=== PATIENT | female | born 1955 | race Caucasian/White ===

== ENCOUNTER 2017-10-27 13:08 | Emergency (ER) | payer MEDICARE, SELFPAY | END 2017-10-27 16:29 | disposition home or self-care (01) | PROVIDERS: Emergency Provider Emergency Medicine; Family Provider Internal Medicine; Visit Provider Emergency Medicine | DX: J69.0 Pneumonitis due to inhalation of food and vomit (principal); I10 Essential (primary) hypertension; J45.909 Unspecified asthma, uncomplicated; E11.9 Type 2 diabetes mellitus without complications | CPT/HCPCS: 36415; 71010; 80053; 82962; 83605; 83880; 84484; 85025; 87040; 87070; 87205; 94640; 94760; 99284 ==

== ENCOUNTER → 2018-03-14 11:22 | Outpatient (CLI) | payer MEDICARE, SELFPAY ==
[2018-03-14 12:17] LABS: Basophils % 0.4 % (0.1-2.0); Eosinophils # 0.1 K/mm3 (0.0-0.4); Eosinophils % 1.9 % (0.1-12.0); Hematocrit 37.7 % (37.0-47.0); Hemoglobin 11.6 g/dL (12.2-16.2); Lymphocytes # 1.1 K/mm3 (0.7-4.5); Lymphocytes % 15.1 K/mm3 (10-50); Mean Corpuscular HGB Conc 30.9 g/dL (31.8-35.4); Mean Corpuscular Hemoglobin 25.3 pg (27.0-31.2); Mean Corpuscular Volume 81.8 fl (81-99); Mean Platelet Volume 6.9 fl (7.4-10.4); Monocytes # 0.3 K/mm3 (0.1-1.0); Monocytes % 4.1 % (1.7-9.3); Neutrophils # 5.8 K/mm3 (1.8-7.8); Neutrophils % 78.5 % (37.0-80.0); Platelet Count 230 K/mm3 (142-424); Red Blood Count 4.61 M/mm3 (4.20-5.40); Red Cell Distribution Width 15.6 % (11.5-17.5); White Blood Count 7.4 K/mm3 (4.8-10.8)
[2018-03-14 12:56] LABS: Hemoglobin A1C 6.2 % (0.0-7.0)
[2018-03-14 13:13] LABS: Alanine Aminotransferase 16 U/L (12-78); Albumin Level 3.4 gm/dL (3.4-5.0); Albumin/Globulin Ratio 0.8 (1.1-1.8); Alkaline Phosphatase 88 U/L (46-116); Anion Gap 12.4 mEq/L (5-15); Aspartate Amino Transferase 14 U/L (15-37); Bilirubin,Total 0.2 mg/dL (0.2-1.0); Blood Urea Nitrogen 17 mg/dL (7-18); Calcium 8.7 mg/dL (8.5-10.1); Carbon Dioxide 29 mmol/L (21.0-32.0); Chloride 104 mmol/L (98-107); Chol/HDL Ratio 2.8 (1-3.5); Cholesterol 140 mg/dL (140-200); Creatinine,Serum 1.05 mg/dL (0.55-1.02); Estimated Glomerular Filt Rate 53 ml/min (>60); GFR (African American) 65 ML/MIN (>60); Globulin 4.3 gm/dl (1.3-3.2); Glucose 135 mg/dL (74-106); HDL Cholesterol 50 mg/dL (29-89); LDL Cholesterol 67 mg/dL (0-130); Potassium 4.4 mmoL/L (3.5-5.1); Sodium 141 mmol/L (136-145); Total Protein,Serum 7.7 gm/dL (6.4-8.2); Triglycerides 114 mg/dL (30-200); VLDL Cholesterol 23 mg/dL (0-40)
== END ==
PROVIDERS: Visit Provider Internal Medicine
DX: E11.42 Type 2 diabetes mellitus with diabetic polyneuropathy (principal); E78.5 Hyperlipidemia, unspecified; I10 Essential (primary) hypertension; E03.9 Hypothyroidism, unspecified; N18.3 Chronic kidney disease, stage 3 (moderate)
CPT/HCPCS: 36415; 80053; 80061; 83036; 84443; 85025

== ENCOUNTER → 2018-11-16 11:48 | Outpatient (CLI) | payer MEDICARE, SELFPAY ==
[2018-11-16 13:39] LABS: Alanine Aminotransferase 15 U/L (12-78); Albumin Level 3.5 gm/dL (3.4-5.0); Albumin/Globulin Ratio 0.9 (1.1-1.8); Alkaline Phosphatase 91 U/L (46-116); Anion Gap 15.2 mEq/L (5-15); Aspartate Amino Transferase 9 U/L (15-37); Bilirubin,Total 0.3 mg/dL (0.2-1.0); Blood Urea Nitrogen 15 mg/dL (7-18); Calcium 8.3 mg/dL (8.5-10.1); Carbon Dioxide 27 mmol/L (21.0-32.0); Chloride 102 mmol/L (98-107); Chol/HDL Ratio 2.3 (1-3.5); Cholesterol 143 mg/dL (140-200); Creatinine,Serum 1.01 mg/dL (0.55-1.02); Estimated Glomerular Filt Rate 56 ml/min (>60); GFR (African American) 67 ML/MIN (>60); Globulin 4.1 gm/dl (1.3-3.2); Glucose 135 mg/dL (74-106); HDL Cholesterol 61 mg/dL (29-89); LDL Cholesterol 64 mg/dL (0-130); Potassium 4.2 mmoL/L (3.5-5.1); Sodium 140 mmol/L (136-145); Total Protein,Serum 7.6 gm/dL (6.4-8.2); Triglycerides 91 mg/dL (30-200); VLDL Cholesterol 18 mg/dL (0-40)
[2018-11-16 15:24] LABS: Hemoglobin A1C 6.4 % (0.0-7.0)
== END ==
PROVIDERS: Visit Provider Internal Medicine
DX: E11.42 Type 2 diabetes mellitus with diabetic polyneuropathy (principal); E66.01 Morbid (severe) obesity due to excess calories; E78.5 Hyperlipidemia, unspecified; I27.81 Cor pulmonale (chronic); N18.3 Chronic kidney disease, stage 3 (moderate); Z79.4 Long term (current) use of insulin; Z79.84 Long term (current) use of oral hypoglycemic drugs
CPT/HCPCS: 36415; 80053; 80061; 83036

== ENCOUNTER → 2019-12-03 11:40 | Outpatient (CLI) | payer MEDICARE, SELFPAY ==
[2019-12-03 12:12] LABS: Basophils # 0.1 K/mm3 (0-0.2); Basophils % 0.6 % (0.1-2.0); Eosinophils # 0.1 K/mm3 (0.0-0.4); Eosinophils % 1.2 % (0.1-12.0); Hematocrit 29.5 % (37.0-47.0); Lymphocytes % 12.3 % (10-50); Mean Corpuscular HGB Conc 26.1 g/dL (31.8-35.4); Mean Corpuscular Hemoglobin 19.1 pg (27.0-31.2); Mean Corpuscular Volume 73.2 fl (81-99); Mean Platelet Volume 7.1 fl (7.4-10.4); Monocytes # 0.3 K/mm3 (0.1-1.0); Monocytes % 4.3 % (1.7-9.3); Neutrophils # 6.3 K/mm3 (1.8-7.8); Neutrophils % 81.5 % (37.0-80.0); Platelet Count 323 K/mm3 (142-424); Red Blood Count 4.04 M/mm3 (4.20-5.40); Red Cell Distribution Width 17.6 % (11.5-17.5); White Blood Count 7.7 K/mm3 (4.8-10.8)
[2019-12-03 12:14] LABS: Hemoglobin 7.7 g/dL (12.2-16.2)
[2019-12-03 13:02] LABS: Hemoglobin A1C 6.1 % (0.0-7.0)
[2019-12-03 14:19] LABS: Alanine Aminotransferase 6 U/L (12-78); Albumin Level 3.2 gm/dL (3.4-5.0); Albumin/Globulin Ratio 0.8 (1.1-1.8); Alkaline Phosphatase 112 U/L (46-116); Anion Gap 13.6 mEq/L (5-15); Aspartate Amino Transferase 10 U/L (15-37); Bilirubin,Total 0.3 mg/dL (0.2-1.0); Blood Urea Nitrogen 12 mg/dL (7-18); Calcium 8.2 mg/dL (8.5-10.1); Carbon Dioxide 27 mmol/L (21.0-32.0); Chloride 105 mmol/L (98-107); Chol/HDL Ratio 2.5 (1-3.5); Cholesterol 123 mg/dL (140-200); Creatinine,Serum 0.93 mg/dL (0.55-1.02); Estimated Glomerular Filt Rate 61 ml/min (>60); GFR (African American) 74 ML/MIN (>60); Globulin 3.8 gm/dl (1.3-3.2); Glucose 108 mg/dL (74-106); HDL Cholesterol 50 mg/dL (29-89); LDL Cholesterol 54 mg/dL (0-130); Potassium 4.6 mmoL/L (3.5-5.1); Sodium 141 mmol/L (136-145); Thyroid Stimulating Hormone 3.59 uIU/ml (0.358-3.740); Triglycerides 93 mg/dL (30-200); VLDL Cholesterol 19 mg/dL (0-40)
[2019-12-03 15:51] LABS: Reticulocyte % (Auto) 1.9 % (0.9-3.2)
[2019-12-05 05:49] LABS: Iron 13 ug/dL (27-139); UIBC 353 ug/dL (118-369)
[2019-12-05 17:01] LABS: Iron Saturation 4 % (15-55)
== END ==
PROVIDERS: Visit Provider Internal Medicine
DX: E11.42 Type 2 diabetes mellitus with diabetic polyneuropathy (principal); E78.5 Hyperlipidemia, unspecified; E03.9 Hypothyroidism, unspecified; D64.9 Anemia, unspecified; I10 Essential (primary) hypertension; N18.3 Chronic kidney disease, stage 3 (moderate)
CPT/HCPCS: 36415; 80053; 80061; 83036; 83540; 83550; 84443; 85025; 85044

== ENCOUNTER 2020-06-17 09:54 | Emergency (ER) | payer MEDICARE, SELFPAY ==
--- NOTE | 2020-06-17 09:50 | ECG_ITS ---
APPROVED REPORT Exam: Resting ECG HR:100 bpm ECG Measurements Heart Rate 100 AXES AK 200 P 31 QRSd 88 QRS 80 QT 338 T 48 QTc 436 <Conclusion> Normal sinus rhythm Late R-wave progression, no change since 2015 otherwise normal ECG Electronically signed by : Bg Bruno, 06/19/2020 07:55:55
[2020-06-17 09:55] VITALS: BP 173/74; PULSE 105; RESP 16; TEMP 36.6; O2SAT 95; BMI 88.7
[2020-06-17 10:08] VITALS: BP 164/78; PULSE 96; O2SAT 97
--- NOTE | 2020-06-17 10:16 | PC.NURSE ---
Pt up to bedside commode at this time.
--- NOTE | 2020-06-17 10:22 | HMH.EDGENADL ---
ED Disposition Clinical Impression: Palpitations Disposition: Home, Self-Care Condition on Discharge: Fair Instructions: DI for Arrhythmias, DI for Palpitations Additional Instructions: You have been evaluated for palpitations. Please take all medications as prescribed. It is very important to follow-up with your primary care doctor, you may need to wear a cardiac event monitor. Return to the emergency department if you have any new or worsening symptoms, chest pain, shortness of breath, headache. Referrals: Blaze Hebert [Primary Care Provider] - Time of Disposition: 11:53 - Critical Care Critical Care Time: No Attestation: On 06/17/20, the high probability of a clinically significant, sudden or life threatening deterioration of the following system(s) required my full and direct attention, intervention and personal management. The time I documented below is in addition to time spent performing reported procedures but includes the following listed in this critical care notation. Medical Decision Making - Medical Records Medical records reviewed: Yes: I reviewed the patient's medical records. - [place] Inquiry Pt receiving controlled substance: No Vital Signs: 06/17/20 09:55 06/17/20 10:08 06/17/20 11:01 Temperature 98 F Temperature Source Temporal Artery Scan Pulse Rate [Right] 105 H 96 H 88 Respiratory Rate 16 Blood Pressure [Right Arm] 173/74 H 164/78 H 162/46 H Blood Pressure Mean [Right Arm] 107 106 84 Blood Pressure Source [Right Arm] Automatic Cuff Automatic Cuff Automatic Cuff Blood Pressure Position [Right Arm] Sitting Sitting Sitting 02 Sat by Pulse Oximetry 95 97 97 Oxygen Delivery Method Room Air Nasal Cannula Nasal Cannula Oxygen Flow Rate (LPM) 3 3 06/17/20 11:29 Temperature Temperature Source Pulse Rate [Right] 90 Respiratory Rate Blood Pressure [Right Arm] 174/80 H Blood Pressure Mean [Right Arm] 111 Blood Pressure Source [Right Arm] Automatic Cuff Blood Pressure Position [Right Arm] Sitting 02 Sat by Pulse Oximetry 96 Oxygen Delivery Method Nasal Cannula Oxygen Flow Rate (LPM) 3 - Lab Data Lab Results 06/17/20 10:40: WBC 7.0, RBC 4.44, Hgb 12.2, Hct 39.8, MCV 89.8, MCH 27.4, MCHC 30.5 L, RDW 16.0, Plt Count 311, MPV 7.9, Neut % (Auto) 71.6, Lymph % (Auto) 19.3, [place] % (Auto) 5.3, Eos % (Auto) 3.0, Baso % (Auto) 0.8, Neut # (Auto) 5.0, Lymph # (Auto) 1.4, [place] # (Auto) 0.4, Eos # (Auto) 0.2, Baso # (Auto) 0.1 06/17/20 10:40: Sodium 141, Potassium 3.9, Chloride 99, Carbon Dioxide 31 H, Anion Gap 14.9, BUN 15, Creatinine 0.90, Estimated Creat Clear 54, Estimated GFR 63, Est GFR ( Amer) 77, Glucose 141 H, Calcium 8.7, Magnesium 2.1, Troponin I < 0.01, TSH 4.03 06/17/20 10:40: Free T4 1.44 Result diagrams: 06/17/20 10:40 06/17/20 10:40 Orders (Tests/Meds): ED MEDICATIONS Discontinued Medications Generic Name Dose Route Start Last Admin Trade Name Freq PRN Reason Stop Dose Admin Sodium Chloride 1,000 mls @ 999 mls/hr 06/17/20 10:15 06/17/20 10:31 Sod Chlor 0.9% 1000ml Bag IV 06/17/20 11:15 999 mls/hr .Q1H1M CYNTHIA Administration ORDERS Category Date Time Status Troponin I Q3H Lab 06/17/20 13:15 Ordered Troponin I Q3H Lab 06/17/20 16:15 Ordered Medical Decision Narrative: In summary this is a 65-year-old female with history of morbid obesity, paroxysmal SVT, diuretic use presenting to the emergency department with palpitations. She is overall well-appearing. Heart rate is 105 and regular. Differential diagnoses include acute kidney injury, electrolyte derangement, dehydration, hyperthyroidism. Plan to obtain CBC, CMP, thyroid studies, urinalysis, chest x-ray, EKG and reassess. Patient given IV fluid bolus. Initial laboratory results are generally unremarkable. No evidence of renal injury. No electrolyte derangement. Thyroid studies unremarkable. After fluids patient's heart rate had normalized to 80 bpm. She said she was
--- NOTE | 2020-06-17 10:39 | PC.NURSE ---
Lab at bedside, V/S delayed.
[2020-06-17 10:52] LABS: Basophils # 0.1 K/mm3 (0-0.2); Basophils % 0.8 % (0.1-2.0); Eosinophils # 0.2 K/mm3 (0.0-0.4); Hematocrit 39.8 % (37.0-47.0); Hemoglobin 12.2 g/dL (12.2-16.2); Lymphocytes # 1.4 K/mm3 (0.7-4.5); Lymphocytes % 19.3 % (10-50); Mean Corpuscular HGB Conc 30.5 g/dL (31.8-35.4); Mean Corpuscular Hemoglobin 27.4 pg (27.0-31.2); Mean Corpuscular Volume 89.8 fl (81-99); Mean Platelet Volume 7.9 fl (7.4-10.4); Monocytes # 0.4 K/mm3 (0.1-1.0); Monocytes % 5.3 % (1.7-9.3); Neutrophils % 71.6 % (37.0-80.0); Platelet Count 311 K/mm3 (142-424); Red Blood Count 4.44 M/mm3 (4.20-5.40)
[2020-06-17 10:55] LABS: Chloride 99 mmol/L (98-107); Potassium 3.9 mmoL/L (3.5-5.1); Sodium 141 mmol/L (136-145)
[2020-06-17 10:58] LABS: Anion Gap 14.9 mEq/L (5-15); Blood Urea Nitrogen 15 mg/dl (7-17); Carbon Dioxide 31 mmol/L (22.0-30.0); Creatinine Clearance Estimated 54 mL/min (50-200); Estimated Glomerular Filt Rate 63 ml/min (>60); GFR (African American) 77 ML/MIN (>60)
[2020-06-17 10:59] LABS: Calcium 8.7 mg/dl (8.4-10.2); Glucose 141 mg/dl (74-100); Magnesium 2.1 mg/dl (1.6-2.3)
[2020-06-17 11:01] VITALS: BP 162/46; PULSE 88; O2SAT 97
[2020-06-17 11:14] LABS: Troponin I < 0.01 ng/ml (0.00-0.034)
[2020-06-17 11:16] LABS: Free T4 (Free Thyroxine) 1.44 ng/dl (0.78-2.19)
--- NOTE | 2020-06-17 11:20 | PC.NURSE ---
Pt on bedside commode again at this time.
[2020-06-17 11:29] VITALS: BP 174/80; PULSE 90; O2SAT 96
[2020-06-17 11:30] LABS: Thyroid Stimulating Hormone 4.03 uIU/mL (0.465-4.68)
[2020-06-17 12:09] VITALS: BP 176/60; PULSE 70; RESP 16; TEMP 36.9; O2SAT 98
== END 2020-06-17 12:12 | disposition home or self-care (01) ==
PROVIDERS: Emergency Provider Emergency Medicine; PCP Internal Medicine
DX: R00.2 Palpitations (principal); I47.1 Supraventricular tachycardia; E03.9 Hypothyroidism, unspecified; E66.01 Morbid (severe) obesity due to excess calories; Z68.45 Body mass index [BMI] 70 or greater, adult
CPT/HCPCS: 36415; 80048; 83735; 84439; 84443; 84484; 85025; 93005; 93225; 93226; 96365; 99283

== ENCOUNTER → 2020-06-17 15:39 | Outpatient (CLI) | payer MEDICARE, SELFPAY | PROVIDERS: PCP Internal Medicine; Visit Provider Internal Medicine | DX: R00.2 Palpitations (principal) | CPT/HCPCS: 93225; 93226 ==

== ENCOUNTER → 2020-10-20 14:48 | Outpatient (CLI) | payer MEDICARE, SELFPAY ==
[2020-10-20 15:41] LABS: Hemoglobin A1C 5.5 % (4.0-6.0)
[2020-10-20 16:01] LABS: Chloride 103 mmol/L (98-107); Sodium 139 mmol/L (136-145)
[2020-10-20 16:03] LABS: Blood Urea Nitrogen 14 mg/dl (7-17); Estimated Glomerular Filt Rate 72 ml/min (>60); GFR (African American) 88 ML/MIN (>60)
[2020-10-20 16:04] LABS: Alanine Aminotransferase 11 U/L (12-78); Albumin Level 4.3 g/dl (3.5-5.0); Albumin/Globulin Ratio 1.2 (1.1-1.8); Alkaline Phosphatase 107 U/L (38-126); Aspartate Amino Transferase 20 U/L (14-36); Bilirubin,Total 0.3 mg/dl (0.2-1.3); Carbon Dioxide 29 mmol/L (22.0-30.0); Cholesterol 150 mg/dl (140-200); Globulin 3.6 g/dL (1.3-3.2); Total Protein,Serum 7.9 g/dl (6.3-8.2); Triglycerides 109 mg/dl (30-150); VLDL Cholesterol 22 mg/dL (0-40)
[2020-10-20 16:05] LABS: Calcium 8.9 mg/dl (8.4-10.2); Chol/HDL Ratio 2.7 (1-3.5); Glucose 92 mg/dl (74-100); HDL Cholesterol 56 mg/dl (40-60)
[2020-10-20 16:16] LABS: Direct LDL Cholesterol 67.14 mg/dL (100-129)
[2020-10-28 18:52] LABS: Creatinine,Urine Random 170 mg/dL (Not Estab.)
== END ==
PROVIDERS: Visit Provider Internal Medicine
DX: E11.42 Type 2 diabetes mellitus with diabetic polyneuropathy (principal); E66.01 Morbid (severe) obesity due to excess calories; I10 Essential (primary) hypertension; E78.5 Hyperlipidemia, unspecified; E03.9 Hypothyroidism, unspecified; I27.81 Cor pulmonale (chronic); N18.30 Chronic kidney disease, stage 3 unspecified
CPT/HCPCS: 36415; 80053; 80061; 82043; 82570; 83036; 84443

== ENCOUNTER → 2021-05-14 11:48 | Outpatient (CLI) | payer MEDICARE, SELFPAY ==
[2021-05-14 12:43] LABS: Basophils # 0.1 K/mm3 (0-0.2); Basophils % 0.6 % (0.1-2.0); Eosinophils # 0.1 K/mm3 (0.0-0.4); Eosinophils % 1.5 % (0.1-12.0); Hematocrit 36.6 % (37.0-47.0); Hemoglobin 11.9 g/dL (12.2-16.2); Lymphocytes # 0.9 K/mm3 (0.7-4.5); Mean Corpuscular HGB Conc 32.5 g/dL (31.8-35.4); Mean Corpuscular Hemoglobin 28.6 pg (27.0-31.2); Mean Corpuscular Volume 88.1 fl (81-99); Mean Platelet Volume 7.5 fl (7.4-10.4); Monocytes # 0.3 K/mm3 (0.1-1.0); Monocytes % 3.9 % (1.7-9.3); Neutrophils # 6.6 K/mm3 (1.8-7.8); Platelet Count 283 K/mm3 (142-424); Red Blood Count 4.15 M/mm3 (4.20-5.40); Red Cell Distribution Width 14.8 % (11.5-17.5); White Blood Count 7.9 K/mm3 (4.8-10.8)
[2021-05-14 12:55] LABS: Hemoglobin A1C 5.9 % (4.0-6.0)
[2021-05-14 13:22] LABS: Alanine Aminotransferase 9 U/L (12-78); Albumin Level 3.9 g/dl (3.5-5.0); Albumin/Globulin Ratio 1.2 (1.1-1.8); Alkaline Phosphatase 99 U/L (38-126); Anion Gap 12.7 mEq/L (5-15); Aspartate Amino Transferase 15 U/L (14-36); Bilirubin,Total 0.3 mg/dl (0.2-1.3); Blood Urea Nitrogen 16 mg/dl (7-17); Calcium 8.5 mg/dl (8.4-10.2); Carbon Dioxide 28 mmol/L (22.0-30.0); Chloride 105 mmol/L (98-107); Chol/HDL Ratio 2.6 (1-3.5); Cholesterol 148 mg/dl (140-200); Estimated Glomerular Filt Rate 72 ml/min (>60); GFR (African American) 88 ML/MIN (>60); Globulin 3.2 g/dL (1.3-3.2); Glucose 125 mg/dl (74-100); HDL Cholesterol 57 mg/dl (40-60); Potassium 4.7 mmoL/L (3.5-5.1); Sodium 141 mmol/L (136-145); Total Protein,Serum 7.1 g/dl (6.3-8.2); Triglycerides 134 mg/dl (30-150); VLDL Cholesterol 27 mg/dL (0-40)
[2021-05-14 13:33] LABS: Direct LDL Cholesterol 59.94 mg/dL (100-129)
[2021-05-14 13:44] LABS: 25-OH Vitamin D, Total < 12.8 ng/mL (30-100)
== END ==
PROVIDERS: Visit Provider Internal Medicine
DX: E11.42 Type 2 diabetes mellitus with diabetic polyneuropathy (principal); I10 Essential (primary) hypertension; E78.5 Hyperlipidemia, unspecified; E03.9 Hypothyroidism, unspecified; I27.81 Cor pulmonale (chronic); N19 Unspecified kidney failure; E55.9 Vitamin D deficiency, unspecified; G47.33 Obstructive sleep apnea (adult) (pediatric); E66.01 Morbid (severe) obesity due to excess calories
CPT/HCPCS: 36415; 80053; 80061; 82306; 83036; 84443; 85025

== ENCOUNTER 2021-09-16 14:13 | Inpatient (IN) | payer MEDICARE, SELFPAY ==
[2021-09-16] VITALS (8 sets, daily range): BP systolic 134–168; BP diastolic 68–87; PULSE 94–102; RESP 16–21; TEMP 36.7–37.1; O2SAT 84–98; BMI 88.7; BMI 75.7
--- NOTE | 2021-09-16 14:27 | XR_ITS ---
PROCEDURE: XR CHEST PORTABLE CLINICAL HISTORY: SOA COMPARISON: CR CXR1 CHEST-PORTABLE from 01/05/2015 CR CXR1 CHEST-PORTABLE from 10/27/2017 FINDINGS: There is moderate patient rotation. There is mild cardiomegaly. There is asymmetric prominence of the right-sided pulmonary vessels compared to the left which in part could be related to patient's rotation and body habitus. No lobar consolidation or collapse. There are low lung volumes. IMPRESSION: Cardiomegaly with some asymmetric prominence of the right-sided pulmonary vessels. This may be related to the radiographic technique. Asymmetric vascular prominence may be seen with contralateral pulmonary embolus. Please correlate with clinical parameters. Dictated by: Tony Vega MD 09/16/2021 15:43 Tony Vega MD in [place] 09/16/2021 15:43
[2021-09-16 14:46] LABS: Basophils % 0.6 % (0.1-2.0); Eosinophils # 0.2 K/mm3 (0.0-0.4); Eosinophils % 2.2 % (0.1-12.0); Hematocrit 37.2 % (37.0-47.0); Hemoglobin 11.4 g/dL (12.2-16.2); Lymphocytes # 1.1 K/mm3 (0.7-4.5); Lymphocytes % 16.6 % (10-50); Mean Corpuscular HGB Conc 30.5 g/dL (31.8-35.4); Mean Corpuscular Hemoglobin 27.7 pg (27.0-31.2); Mean Corpuscular Volume 90.7 fl (81-99); Mean Platelet Volume 8.8 fl (7.4-10.4); Monocytes # 0.3 K/mm3 (0.1-1.0); Monocytes % 4.8 % (1.7-9.3); Neutrophils % 75.8 % (37.0-80.0); Platelet Count 304 K/mm3 (142-424); Red Cell Distribution Width 14.5 % (11.5-17.5); White Blood Count 6.6 K/mm3 (4.8-10.8)
--- NOTE | 2021-09-16 14:48 | ECG_ITS ---
APPROVED REPORT Exam: Resting ECG HR:85 bpm ECG Measurements Heart Rate 85 AXES QRSd 84 QRS 90 QT 362 T 121 QTc 430 Conclusion Atrial fibrillation Rightward axis Low voltage QRS Septal infarct, age undetermined Abnormal ECG Electronically signed by : Bg Bruno MD 09/17/2021 13:51:48
[2021-09-16 15:18] LABS: Alanine Aminotransferase 7 U/L (12-78); Albumin Level 3.7 g/dl (3.5-5.0); Albumin/Globulin Ratio 1.1 (1.1-1.8); Alkaline Phosphatase 80 U/L (38-126); Anion Gap 11.5 mEq/L (5-15); Aspartate Amino Transferase 13 U/L (14-36); Blood Urea Nitrogen 19 mg/dl (7-17); Calcium 8.8 mg/dl (8.4-10.2); Carbon Dioxide 32 mmol/L (22.0-30.0); Chloride 101 mmol/L (98-107); Creatinine Clearance Estimated 53 mL/min (50-200); Estimated Glomerular Filt Rate 72 ml/min (>60); GFR (African American) 87 ML/MIN (>60); Globulin 3.3 g/dL (1.3-3.2); Glucose 114 mg/dl (74-100); Potassium 4.5 mmoL/L (3.5-5.1); Sodium 140 mmol/L (136-145)
--- NOTE | 2021-09-16 15:18 | HMH.EDGENADL ---
ED Disposition Clinical Impression: New onset atrial fibrillation, Elevated d-dimer Congestive heart failure Qualifiers: Heart failure type: unspecified Heart failure chronicity: acute on chronic Qualified Code(s): I50.9 - Heart failure, unspecified Disposition: Admitted as Observation Condition on Discharge: Fair Referrals: Blaze Hebert [Primary Care Provider] - - Critical Care Critical Care Time: No Attestation: On 09/16/21, the high probability of a clinically significant, sudden or life threatening deterioration of the following system(s) required my full and direct attention, intervention and personal management. The time I documented below is in addition to time spent performing reported procedures but includes the following listed in this critical care notation. Medical Decision Making - Portillo Inquiry Pt receiving controlled substance: No Vital Signs: 09/16/21 14:13 09/16/21 15:31 09/16/21 16:00 Temperature 98.2 F Temperature Source Oral Pulse Rate 95 H 94 H Pulse Rate [Right Radial] 98 H Respiratory Rate 21 16 19 Blood Pressure 160/72 H 162/74 H Blood Pressure [Right Arm] 134/81 Blood Pressure Mean 120 Blood Pressure Mean [Right Arm] 98 Blood Pressure Source [Right Arm] Automatic Cuff Blood Pressure Position [Right Arm] Sitting 02 Sat by Pulse Oximetry 84 L 98 95 Oxygen Delivery Method Room Air 09/16/21 17:00 09/16/21 17:31 Temperature Temperature Source Pulse Rate 96 H 97 H Pulse Rate [Right Radial] Respiratory Rate 16 20 Blood Pressure 160/70 H 148/73 H Blood Pressure [Right Arm] Blood Pressure Mean 100 Blood Pressure Mean [Right Arm] Blood Pressure Source [Right Arm] Blood Pressure Position [Right Arm] 02 Sat by Pulse Oximetry 96 95 Oxygen Delivery Method - Lab Data Lab Results 09/16/21 14:30: WBC 6.6, RBC 4.10 L, Hgb 11.4 L, Hct 37.2, MCV 90.7, MCH 27.7, MCHC 30.5 L, RDW 14.5, Plt Count 304, MPV 8.8, Neut % (Auto) 75.8, Lymph % (Auto) 16.6, [place] % (Auto) 4.8, Eos % (Auto) 2.2, Baso % (Auto) 0.6, Neut # (Auto) 5.0, Lymph # (Auto) 1.1, [place] # (Auto) 0.3, Eos # (Auto) 0.2, Baso # (Auto) 0.0 09/16/21 14:30: TSH 3.88, Free T4 Index 4.2 L, Thyroxine (T4) 11.0, T3 Uptake 39 09/16/21 14:30: D-Dimer 1.12 H 09/16/21 15:00: Sodium 140, Potassium 4.5, Chloride 101, Carbon Dioxide 32 H, Anion Gap 11.5, BUN 19 H, Creatinine 0.80, Estimated Creat Clear 53, Estimated GFR 72, Est GFR ( Amer) 87, Glucose 114 H, Calcium 8.8, Total Bilirubin 0.1 L, AST 13 L, ALT 7 L, Alkaline Phosphatase 80, Troponin I < 0.01, Total Protein 7.0, Albumin 3.7, Globulin 3.3 H, Albumin/Globulin Ratio 1.1 09/16/21 15:00: Magnesium 1.7 09/16/21 15:00: NT-Pro-B Natriuret Pep 1770 H 09/16/21 15:50: SARS-CoV-2 (PCR) Not detected, Influenza A Untype (PCR) Not detected, Influenza Type B (PCR) Not detected 09/16/21 15:51: Urine Color Yellow, Urine Appearance Sl cloudy, Urine pH 6.5, Ur Specific [place] 1.020, Urine Protein Trace, Urine Glucose (UA) Negative, Urine Ketones Trace, Urine Blood Negative, Urine Nitrate Positive, Urine Bilirubin Negative, Urine Urobilinogen 1.0, Ur Leukocyte Esterase 1+ A, Urine RBC None, Urine WBC Occasional, Ur Squamous Epith Cells None, Urine Bacteria 4+ Result diagrams: 09/16/21 14:30 09/16/21 15:00 Orders (Tests/Meds): ED MEDICATIONS Discontinued Medications Generic Name Dose Route Start Last Admin Trade Name Freq PRN Reason Stop Dose Admin Furosemide 80 mg 09/16/21 15:40 09/16/21 15:51 Furosemide 40mg/4ml Vial IV 09/16/21 15:41 80 mg ONCE ONE Administration ORDERS Category Date Time Status Troponin I Q3H Lab 09/16/21 17:23 Received Troponin I Q3H Lab 09/16/21 20:30 Ordered Urine Culture Stat Micro 09/16/21 15:51 Received - Radiology Data #1 Image(s): Chest Image Reviewed: Yes I have reviewed radiologist's interpretation PROCEDURE: XR CHEST PORTABLE CLINICAL HISTORY: SOA COMPARISON: CR CXR1 CH
[2021-09-16 15:19] LABS: Bilirubin,Total 0.1 mg/dl (0.2-1.3)
[2021-09-16 15:32] LABS: Troponin I < 0.01 ng/ml (0.00-0.034)
[2021-09-16 15:51] LABS: Magnesium 1.7 mg/dl (1.6-2.3)
[2021-09-16 15:54] LABS: Microscopic, Urine URINE MICROSCOPIC (MICROSCOPIC)
[2021-09-16 16:00] LABS: NT Pro Brain Natriuretic Pep. 1770 pg/mL (0-125)
[2021-09-16 16:00] LABS: Coronavirus 19, PCR Not Detected (NotDetected); Influenza A, PCR Not Detected (NotDetected); Influenza B, PCR Not Detected (NotDetected)
[2021-09-16 16:00] LABS: Appearance,Urine SL CLOUDY (Clear); Bilirubin,Urine Negative (Negative); Blood, Urine Negative (Negative); Color,Urine YELLOW (Yellow); Glucose,Urine (UA) Negative (Negative); Ketones,Urine TRACE (Negative); Leukocyte Esterase,Urine 1+ (Negative); Nitrate,Urine POSITIVE (Negative); PH,Urine 6.5 (5.0-8.5); Protein,Urine TRACE (Negative)
[2021-09-16 16:24] LABS: Bacteria,Urine 4+ /lpf; WBC,Urine Occasional #/hpf (0-3)
[2021-09-16 16:35] LABS: Thyroid Stimulating Hormone 3.88 uIU/mL (0.465-4.68)
[2021-09-16 16:41] LABS: Free Thyroxine Index 4.2 ug/dL (5.93-13.13); Triiodothryronine (T3) Uptake 39 % (23.5-40.5)
[2021-09-16 17:15] LABS: D-Dimer 1.12 ug/mL (0.0-0.5)
--- NOTE | 2021-09-16 17:46 | PC.NURSE ---
Dr. Eyad alcantara
--- NOTE | 2021-09-16 17:51 | PC.NURSE ---
speaking with Dr. Castano
--- NOTE | 2021-09-16 18:12 | PC.NURSE ---
Emptied pts kil[place]ore of 2900mls.
[2021-09-16 18:14] LABS: Troponin I < 0.01 ng/ml (0.00-0.034)
--- NOTE | 2021-09-16 20:34 | PC.NURSE ---
PT ARRIVED TO FLOOR VIA STRETCHER FROM ED W/STAFF @ 2033
[2021-09-16 20:47] LABS: Troponin I < 0.01 ng/ml (0.00-0.034)
[2021-09-16 21:30] LABS: POC Glucose,Bedside 94 (70-110)
[2021-09-17] VITALS (8 sets, daily range): BP systolic 135–153; BP diastolic 59–93; PULSE 68–106; RESP 19–20; TEMP 36.4–37.6; O2SAT 94–96; BMI 75.7; BMI 75.8
--- NOTE | 2021-09-17 03:18 | PC.NURSE ---
A&OX4. TOLERATING 3.5LNC WELL. F/C PRESENT DRAINING LARGE AMOUNTS OF CLEAR URINE. PT HAS HAD NO C/O THUS FAR. SEEMS TO BE SOA WITH ACTIVITY. ABLE TO MOVE AND TURN HERSELF IN BED. VSS WILL CONTINUE TO MONITOR.
--- NOTE | 2021-09-17 07:00 | CA_ITS ---
APPROVED REPORT EXAM: Comprehensive 2D, Doppler, and color-flow Echocardiogram Hydro Operator: [place] CRT Ht: 5 ft 6 in Wt: 550lbs BSA: 3.07 BP: 148/73 mmHg Indications: Shortness of Breath, Obesity, Peripheral Edema, home O2, MADELINE 2D Dimensions LVOT 1.77 cm (M/F) 1.5-2.5 LA Volume 109.10 mL LA Volume Index 35.50 mL/m2 (M/F) 16-34 M-Mode Dimensions RVDd 4.11 cm (0.9-2.6) LA Diam 5.73 cm (1.9-4.0) LVDd 5.63 cm (3.5-5.7) Ao Diam 3.21 cm (2.0-3.7) LVDs 4.07 cm (3.5-5.7) IVSd 1.61 cm (0.6-1.1) PWd 0.80 cm (0.6-1.1) EF (Teich) 53.10% FS 27.70% EDV (Teich) 155.60 mL ESV (Teich) 72.90 mL LV Diastology E Decel Time 253.00 (160-240 msec) E/A Ratio 1.33 Aortic Valve LVOT Max 161.00 (70-110 cm/s) LVOT VTI 32.42 cm AoV Peak Bryn. 187.00 (50-130 cm/s) AO Peak GR. 14.20 mmHg AO Mean GR. 8.10 (<5 mmHg) AO VTI 34.63 (18-25 cm) TALI (VTI) 2.30 (2.5-4.5 cm2) Mitral Valve MV E Max Bryn. 145.00 (40-130 cm/s) MV A Velocity 109.00 (40-130 cm/s) E/A Ratio 1.33 MV Decel. Time 253.00 (160-240 ms) MV PHT 74.00 ms Pulmonary Valve PV Peak Velocity 107.00 (50-150 cm/s) Tricuspid Valve TR P. Velocity 301.00 cm/s RAP Estimate 10.00 mmHg RVSP 46.10 mmHg Left Ventricle Left atrium is moderately enlarged, left ventricle is normal size, mild concentric left ventricular hypertrophy, visually estimated ejection fraction 50 to 55% with no obvious regional wall motion abnormality, there is abnormal septal motion, diastolic parameters are inconclusive. Right Ventricle Right atrium is moderately enlarged, right ventricle is moderately dilated with mild reduced contractility. Aortic Valve Aortic valve is minimally thickened and fibrosed, there is no aortic stenosis or aortic insufficiency. Mitral Valve Mitral valve grossly normal, there is trace mitral regurgitation. Tricuspid Valve Tricuspid grossly normal, there is mild tricuspid regurgitation, calculated right ventricular systolic pressure is 46mmHg. Pulmonic Valve Pulmonic valve is poorly visualized. Great Vessels Aortic root is normal size. Inferior vena cava is dilated without significant inspiratory collapse. Pericardium No significant pericardial effusion noted. Conclusion 1. Biatrial enlargement, normal left ventricular size, mild concentric left ventricular hypertrophy, visually estimated ejection fraction 50 to 55%, there is abnormal septal motion. Diastolic parameters are inconclusive. 2. Moderately enlarged right ventricle with mild reduced contractility. 3. Trace mitral and mild tricuspid regurgitation, calculated right ventricular systolic pressure is 46 mmHg. 4. No significant pericardial effusion noted. 5. Inferior vena cava is dilated without significant inspiratory collapse. Electronically signed by : Bhavesh Holder MD 09/17/2021 13:14:12
[2021-09-17 07:08] LABS: Anion Gap 9.9 mEq/L (5-15); Blood Urea Nitrogen 16 mg/dl (7-17); Calcium 8.4 mg/dl (8.4-10.2); Carbon Dioxide 35 mmol/L (22.0-30.0); Chloride 98 mmol/L (98-107); Creatinine Clearance Estimated 53 mL/min (50-200); Estimated Glomerular Filt Rate 72 ml/min (>60); GFR (African American) 87 ML/MIN (>60); Glucose 90 mg/dl (74-100); Potassium 3.9 mmoL/L (3.5-5.1); Sodium 139 mmol/L (136-145)
--- NOTE | 2021-09-17 07:26 | HMH.PHAVTE ---
[facility] Pharmacy VTE Monitoring - Patient Demographics Admission date: 09/16/21 Report Date: 09/17/21 Time: 07:26 Allergies/Adverse Reactions: Patient Allergies propofol [From Diprivan] Adverse Reaction (Intermediate, Verified 06/17/20 10:02) HALLUCINATIONS Height: 1.68 m Weight: 213.8 kg Patient Problems: Current Active Problems New onset atrial fibrillation (Acute) Congestive heart failure (Acute) Elevated d-dimer (Acute) - VTE Risk Labs: VTE Related Lab Results Hgb 11.4 g/dL (12.2-16.2) L 09/16/21 14:30 Hct 37.2 % (37.0-47.0) 09/16/21 14:30 Plt Count 304 K/mm3 (142-424) 09/16/21 14:30 BUN 16 mg/dl (7-17) 09/17/21 06:15 Creatinine 0.80 mg/dl (0.52-1.04) 09/17/21 06:15 Estimated Creat Clear 53 mL/min (50-200) 09/17/21 06:15 Clinical Trial Participant: No - Prophylaxis VTE Prophylaxis Ordered?: Yes Types of VTE Prophylaxis: TEDS Knee High, Pharmacological Pharmacologic Type: Enoxaparin
--- NOTE | 2021-09-17 07:29 | HMH.CNCARD ---
History of Present Illness Consult date: 09/17/21 Requesting physician: Joseluis Castano Consult reason: atrial fibrillation, shortness of breath Chief complaint: New onset Atrial fib History of present illness: 66-year-old female admitted to [facility] with worsening shortness of breath and new onset atrial fibrillation. Patient states for the past week she has been having worsening shortness of breath and lower extremity edema. Patient stated that she also had been having fluttery feeling in her chest. Upon arrival to ED, patient was noted to be in new onset atrial fibrillation at a controlled heart rate. Patient states atrial fibrillation is new to her. She states she does have history of PSVT and has been on Cardizem for the past several years to control that. Patient does have history of diastolic congestive heart failure and diastolic dysfunction. Patient states she does have chronic shortness of breath due to worsening asthma. This is managed by PCP. Patient does have history of MADELINE in which she does use CPAP at home. Patient is on supplemental oxygen at home and here at the hospital. Patient denies chest pain, tightness or pressure. Lower extremity edema noted. Patient states she was given Lasix in the ED and had urinated over 2900 mL and her shortness of breath had improved. Hernandez catheter is intact draining dark yellow urine. Patient states she does have history of right heart failure. Denies history of coronary artery disease. Patient states she is never had a heart catheterization. Renal function is stable. Patient does states she has significant family history of coronary artery disease. Patient is morbidly obese. D-dimer was noted as positive at 1.12. Patient is unable to have a chest angiogram due to her weight. Denies cough or fever. Echocardiogram was obtained. Preliminary echocardiogram reveals EF 45 to 50% with mild MV and TR noted. Waiting on official result. Chest x-ray reveals mild cardiomegaly. Cardiomegaly with some prominence of the right-sided pulmonary vessel. Serial troponins were performed which were negative. BNP was 1790. Due to the new onset atrial fibrillation, we will start patient on Xarelto 20 mg p.o. daily for anticoagulant and increased risk for stroke. Will start patient on metoprolol 25 mg twice daily p.o. for better heart rate and BP control. Patient is currently on Cardizem p.o. for heart rate control and blood pressure control. Due to diastolic congestive heart failure, we will start Lasix 40 mg twice daily IV for diuresis. We will continue to monitor patient and her status due to changes in medication. Please notify cardiology of any changes in patient status. CXR: FINDINGS: There is moderate patient rotation. There is mild cardiomegaly. There is asymmetric prominence of the right-sided pulmonary vessels compared to the left which in part could be related to patient's rotation and body habitus. No lobar consolidation or collapse. There are low lung volumes. IMPRESSION: Cardiomegaly with some asymmetric prominence of the right-sided pulmonary vessels. This may be related to the radiographic technique. Asymmetric vascular prominence may be seen with contralateral pulmonary embolus. Please correlate with clinical parameters. [facility] History I have reviewed the patient's past medical history: Yes Medical History: Reports:: Asthma, Atrial Fibrillation, Diabetes Mellitus Type 2, Hyperlipidemia, Hypertension Denies:: Chronic Obstructive Pulmonary Disease (COPD) *Have you ever received a pneumonia vaccine?: No *Have you received a flu vaccine this season?: No Other Medical History: Reports: Hypothyroidism, Thyroid Disease - *Social History Smoking Status: Never smoker Alcohol Intake: never *Occupational Status:: retired *Travel in the last 8 weeks: None Family Hx:: No significant family history Meds Home Medications Medication Instruct
--- NOTE | 2021-09-17 11:11 | HMH.HP ---
*Admission Date: 09/16/21 <Mariela Ragsdale - 09/17/21 11:26> *Chief complaint: SOA <Mariela Ragsdale 09/17/21 11:26> *History of present illness: Ms. Jung is a 66-year-old morbidly obese female patient of Dr. Hebert. She presented to the emergency room with worsening shortness of breath which has been ongoing the past week. She has also had increased lower extremity edema. She has felt a fluttering in her chest, but does have a history of PSVT. She states Dr. Hebert recently increased her Cardizem dose after reviewing a Holter monitor and she had not had any problems until this past week. She was evaluated in the ER and found to have new onset atrial fibrillation at a controlled rate. She states she has never had atrial fibrillation in the past. She does have a history of congestive heart failure and has chronic shortness of breath due to asthma. She is on supplemental oxygen at home. She denies any chest pain, but states it has been increasingly difficult to move around at home due to the shortness of breath. She was given Lasix in the emergency room and has diuresed well. Her shortness of breath has improved. She was admitted and cardiology was consulted. Her troponins have been negative but her BNP was elevated. <Mariela Ragsdale - 09/17/21 11:26> [facility] History I have reviewed the patient's past medical history: Yes <Mariela Ragsdale 09/17/21 11:26> Medical History: Reports:: Asthma, Atrial Fibrillation, Congestive Heart Failure, Diabetes Mellitus Type 2, Hyperlipidemia, Hypertension Denies:: Chronic Obstructive Pulmonary Disease (COPD) <Mariela Ragsdale 09/17/21 11:26> *Have you ever received a pneumonia vaccine?: No <Mariela Ragsdale 09/17/21 11:26> *Have you received a flu vaccine this season?: No <Mariela Ragsdale 09/17/21 11:26> Other Medical History: Reports: Hypothyroidism, Thyroid Disease, Other (Morbid Obesity, History of Lung infection with intubation, PSVT) <Mariela Ragsdale 09/17/21 11:26> Other Surgeries: Yes: , Other (Right lung surgery) <Mariela Ragsdale 09/17/21 11:26> - *Social History Smoking Status: Never smoker <Mariela Ragsdale 09/17/21 11:26> Alcohol Intake: never <Mariela Ragsdale 09/17/21 11:26> *Occupational Status:: retired <Mariela Ragsdale 09/17/21 11:26> *Travel in the last 8 weeks: None <JosefelixMariela 09/17/21 11:26> Family Hx:: No significant family history <JosefelixMariela 09/17/21 11:26> Review of Systems - Constitutional Denies chills, Denies fever(s) <JosefelixMariela 09/17/21 11:26> - Eyes Denies blurry vision, Denies double vision <JosefelixMariela 09/17/21 11:26> - ENT Denies nasal congestion, Denies sore throat <JosefelixMariela 09/17/21 11:26> - *Cardiovascular Reports shortness of breath, Reports rapid, pounding, or irregular heartbeat, Denies chest pain <JnMariela 09/17/21 11:26> - *Respiratory Denies chest congestion, Denies cough <JosefelixMariela 09/17/21 11:26> - *Gastrointestinal Denies loose stools, Denies nausea, Denies vomiting <JosefelixMariela 09/17/21 11:26> - *Genitourinary Denies difficulty urinating, Denies painful urination <JosefelixMariela 09/17/21 11:26> - *Musculoskeletal Reports joint pain (Bilateral knees) <JnMariela 09/17/21 11:26> - *Neurologic Reports abnormal walking, Reports weakness, Denies headache(s), Denies dizziness <JosefelixMariela 09/17/21 11:26> Meds Home Medications Medication Instructions Recorded Confirmed Type ALPRAZolam [Alprazolam 0.25mg 0.25 mg PO TIDP PRN 09/16/21 09/17/21 History Tab] Acetaminophen [Tylenol 325mg 325 mg PO HS 09/16/21 09/16/21 History Tablet] Aspirin [Aspirin 325mg Tab] 325 mg PO HS 09/16/21 09/17/21 History Famotidine [Acid Controller] 20 mg PO DAILY 09/16/21 09/16/21 History Furosemide [Furosemide 80mg Tab] 80 mg PO DAILY 09/16/21 09/16/21 History Gabapentin [Gabapentin 100mg Cap] 100 mg PO HS 09/16/21 09/16/21 History Glimepiride 2 mg PO BIDW
--- NOTE | 2021-09-17 16:57 | PC.NURSE ---
PT IS RESTING IN BED. MEDICATED PER MAR FOR DISCOMFORT. ALERT AND ORIENTED X3. PT WAS ABLE TO TOLERATE GETTING OOB TO THE BSC WITH 3 ASSIST. PT WAS ABLE TO STAND AND PIVOT BUT UNABLE TO AMBULATE. PT STATES SHE DOES NOT WALK WELL AT HOME. DRYNESS NOTED TO BLE. LUNG SOUNDS DIMINISHED. ABDOMEN OBESE/SOFT WITH HYPOACTIVE BOWEL SOUNDS. UMBILICAL HERNIA NOTED. VSS. PT HAS DIURESED WELL. REFUSED BATH THIS SHIFT. WILL CONTINUE TO MONITOR.
[2021-09-17 20:19] LABS: POC Glucose,Bedside 152 (70-110)
[2021-09-17 20:19] LABS: POC Glucose,Bedside 87 (70-110)
[2021-09-18] VITALS (8 sets, daily range): BP systolic 139–148; BP diastolic 68–74; PULSE 70–108; RESP 20–24; TEMP 36.6–37.2; O2SAT 92–98; BMI 75.6
--- NOTE | 2021-09-18 05:25 | PC.NURSE ---
pt has rested well throughout the shift. remains on 3.5L NC, tolerating well. Hernandez cath in place draining clear urine. pt used the BSC earlier in the shift but no BM. transferred to the BSC w/ 2+ staff member assist and walker. resting in bed at this time. call light within reach.
[2021-09-18 05:29] LABS: POC Glucose,Bedside 90 (70-110)
[2021-09-18 07:39] LABS: Anion Gap 6.8 mEq/L (5-15); Blood Urea Nitrogen 17 mg/dl (7-17); Calcium 8.2 mg/dl (8.4-10.2); Carbon Dioxide 38 mmol/L (22.0-30.0); Chloride 97 mmol/L (98-107); Creatinine Clearance Estimated 53 mL/min (50-200); Estimated Glomerular Filt Rate 72 ml/min (>60); GFR (African American) 87 ML/MIN (>60); Glucose 119 mg/dl (74-100); Potassium 3.8 mmoL/L (3.5-5.1); Sodium 138 mmol/L (136-145)
--- NOTE | 2021-09-18 08:48 | HMH.ACPN2 ---
<Mariela Ragsdale - Last Filed: 09/18/21 08:48> Internal Medicine - PN: Subj *Date: 09/18/21 *Time: 08:48 Interval history: Patient states her shortness of breath has improved but now she has developed diarrhea. She states she has had numerous episodes yesterday and today. She states is very difficult to get up to the bedside commode. She has not noticed any blood in the stool. Exam Vital signs and Labs for Last 24 Hours: Temp Pulse Resp BP Pulse Ox 98.2 F 92 H 24 139/68 93 L 09/18/21 07:23 09/18/21 07:23 09/18/21 07:23 09/18/21 07:23 09/18/21 07:23 Laboratory Results - last 24 hr 09/17/21 05:23: POC Glucose 87 09/17/21 20:07: POC Glucose 152 H 09/18/21 05:17: POC Glucose 90 09/18/21 06:51: Sodium 138, Potassium 3.8, Chloride 97 L, Carbon Dioxide 38 H, Anion Gap 6.8, BUN 17, Creatinine 0.80, Estimated Creat Clear 53, Estimated GFR 72, Est GFR ( Amer) 87, Glucose 119 H, Calcium 8.2 L I & O for Last 24 hours: Intake & Output 09/15/21 09/16/21 09/17/21 09/18/21 11:59 11:59 11:59 11:59 Intake Total 480 / 480 840 / 840 Output Total 3000 / 3000 2800 / 2800 Balance -2520 / -2520 -1960 / -1960 Weight 471 lb 12.627 oz 470 lb 7.463 oz Microbiology Reports for the Last 24 Hours: Microbiology 09/16/21 15:51 Urine,Catheterized Urine Culture - Final Klebsiella pneumoniae - Constitutional no acute distress - *Routine Respiratory Exam Present: CTA bilaterally - *Routine Cardiovascular Exam Present: irregularly irregular - *Routine Abdominal Exam Present: soft, normoactive bowel sounds. Absent: tenderness - *Routine Extremities Exam Present: edema (Bilateral lower extremity edema). Absent: cyanosis, clubbing - *Routine Skin Exam Present: warm. Absent: rash - *Routine Neurological Exam Present: alert, oriented X3 Assessment and Plan (1) New onset atrial fibrillation Status: Acute Category: Medical Code(s): I48.91 - Unspecified atrial fibrillation (2) Congestive heart failure Status: Acute Qualifiers: Heart failure type: unspecified Heart failure chronicity: acute on chronic Qualified Code(s): I50.9 - Heart failure, unspecified Category: Medical Code(s): I50.9 - Heart failure, unspecified (3) Elevated d-dimer Status: Acute Category: Medical Code(s): R79.89 - Other specified abnormal findings of blood chemistry (4) Asthma Status: Chronic Category: Medical Code(s): J45.909 - Unspecified asthma, uncomplicated (5) Morbid obesity Status: Chronic Category: Medical Code(s): E66.01 - Morbid (severe) obesity due to excess calories (6) Hypertension Status: Chronic Category: Medical Code(s): I10 - Essential (primary) hypertension (7) Hyperlipemia Status: Chronic Category: Medical Code(s): E78.5 - Hyperlipidemia, unspecified (8) Type 2 diabetes mellitus Status: Chronic Category: Medical Code(s): E11.9 - Type 2 diabetes mellitus without complications (9) Palpitations Status: Chronic Category: Medical Code(s): R00.2 - Palpitations - Assessment and plan all Dx Assessment and Plan for all problems:: Cardiology did see the patient and started her on Xarelto due to new onset atrial fibrillation. They also started on metoprolol 25 mg twice daily for heart rate and blood pressure control. They started her on Lasix 40 mg IV twice daily. She has diuresed well. We will get a diarrhea panel to evaluate the etiology of her diarrhea. Possibly home later today. <Joseluis Castano - Last Filed: 09/18/21 10:07> Internal Medicine - PN: Subj *Date: 09/18/21 *Time: 10:03 Exam Vital signs and Labs for Last 24 Hours: Temp Pulse Resp BP Pulse Ox 98.2 F 92 H 24 139/68 93 L 09/18/21 07:23 09/18/21 07:23 09/18/21 07:23 09/18/21 07:23 09/18/21 07:23 Laboratory Results - last 24 hr 09/17/21 05:23: POC Glucose 87 09/17/21 20:07: POC Glucose 152 H
--- NOTE | 2021-09-18 13:55 | HMH.PHAINT ---
DISCHARGE MEDICATION COUNSELING PROVIDED. DISCUSSED ADDITION OF XARELTO AND METOPROLOL TO REGIMEN. DISCUSSED HOW TO TAKE AND POSSIBLE ADES. WATCH FOR BLOOD WHERE IT SHOULDNT BE (URINE, STOOL, VOMITING) AND IF YOU BUMP HEAD TO BE SEEN TO R/O HEAD BLEED. PT ASKED IF THEY WERE CONTINUING LISINOPRIL AND DILITAZEM SINCE THE ADDITION OF METOPROLOL. SHE WAS ADVISED THEY WERE AND TO WATCH FOR SIGNS OF DIZZINESS OR LIGHTHEADEDNESS EARLY ON AND TO DISCUSS WITH MD IF THAT OCCURS. PT ENDORSED NO FURTHER QUESTIONS AT THIS TIME.
[2021-09-18 17:14] LABS: POC Glucose,Bedside 169 (70-110)
--- NOTE | 2021-09-21 09:13 | HMH.DCSUM ---
General - General Admission date:: 09/16/21 <Joseluis Castano - 11/25/21 17:25> 09/16/21 <Bia Stuart - 09/21/21 09:19> Discharge date: 09/18/21 <NarcisoBia - 09/21/21 09:19> HPI HPI: Ms. Jung was a 66-year-old morbidly obese female patient of Dr. Hebert. She presented to the emergency room with worsening shortness of breath which had been ongoing the week prior to admission. She had also had increased lower extremity edema. She had felt a fluttering in her chest, but did have a history of PSVT. She stated Dr. Hebert recently increased her Cardizem dose after reviewing a Holter monitor and she had not had any problems until the past week. She was evaluated in the ER and found to have new onset atrial fibrillation at a controlled rate. She stated she had never had atrial fibrillation in the past. She did have a history of congestive heart failure and had chronic shortness of breath due to asthma. She was on supplemental oxygen at home. She denied any chest pain, but stated it had been increasingly difficult to move around at home due to the shortness of breath. She was given Lasix in the emergency room and had diuresed well. Her shortness of breath had improved. She was admitted and cardiology was consulted. Her troponins had been negative but her BNP was elevated. <Narciso,Bia - 09/21/21 09:19> Hospital Course Hospital Course: She was seen by cardiology and Echo was ordered. She was started on Xarelto as well as metoprolol and Lasix. She did develop some diarrhea overnight which resolved and by the afternoon of 09/18/21 she was felt stable for discharge with follow up with PCP Dr. Hebert in 1 week. <Bia Stuart - 09/21/21 09:22> Objective Vital signs: Temp Pulse Resp BP Pulse Ox 98.9 F 85 22 139/73 98 09/18/21 12:17 09/18/21 16:00 09/18/21 12:17 09/18/21 12:17 09/18/21 12:17 <Joseluis Castano - 11/25/21 17:25> Temp Pulse Resp BP Pulse Ox 98.9 F 85 22 139/73 98 09/18/21 12:17 09/18/21 16:00 09/18/21 12:17 09/18/21 12:17 09/18/21 12:17 <Bia Stuart - 09/21/21 09:19> DS: Diagnosis - Discharge Diagnosis (1) New onset atrial fibrillation Status: Acute (2) Congestive heart failure Status: Acute (3) Elevated d-dimer Status: Acute (4) Asthma Status: Chronic (5) Morbid obesity Status: Chronic (6) Hypertension Status: Chronic (7) Hyperlipemia Status: Chronic (8) Type 2 diabetes mellitus Status: Chronic (9) Palpitations Status: Chronic <Bia Stuart - 09/21/21 09:23> (1) New onset atrial fibrillation Status: Acute (2) Congestive heart failure Status: Acute (3) Elevated d-dimer Status: Acute (4) Asthma Status: Chronic (5) Morbid obesity Status: Chronic (6) Hypertension Status: Chronic (7) Hyperlipemia Status: Chronic (8) Type 2 diabetes mellitus Status: Chronic (9) Palpitations Status: Chronic <Joseluis Castano - 11/25/21 17:25> Discharge Plan - Patient Discharge Instructions ACTIVITY: Continue current activity <Bia Stuart - 09/21/21 09:19> DIET: continue same diet <Bia Stuart - 09/21/21 09:19> Patient Instructions: Congestive Heart Failure (Alternative Therapy), Heart Failure, Atrial Fibrillation, DI for Heart Failure, DI for Atrial Fibrillation <Joseluis Castano - 11/25/21 17:25> Forms: <Joseluis Castano - 11/25/21 17:25> - Follow up Plan Follow up with: Blaze Hebert [Primary Care Provider] - 09/27/21 <Joseluis Castano - 11/25/21 17:25> Disposition: Home, Self-Care <Joseluis Castano - 11/25/21 17:25> Condition at discharge:: Stable <Bia Stuart - 09/21/21 09:24> Home Medications: Home Medications Medication Instructions Recorded Confirmed Type ALPRAZolam [Alprazolam 0.25mg 0.25 mg PO TIDP PRN 09/16/21 11/22/21 History Tab] Acetaminophen [Tylenol 325mg 325 mg PO HS 09/16/21
== END 2021-09-18 16:43 | disposition home or self-care (01) | DRG 291 ==
LOC: ER 18:10 → 2ND 19:11
PROVIDERS: Admitting Provider Family Medicine; Emergency Provider Emergency Medicine; PCP Internal Medicine; Visit Provider Family Medicine
DX: I11.0 Hypertensive heart disease with heart failure (principal); I50.33 Acute on chronic diastolic (congestive) heart failure; I47.1 Supraventricular tachycardia; Z68.45 Body mass index [BMI] 70 or greater, adult; I48.91 Unspecified atrial fibrillation; Z79.4 Long term (current) use of insulin; E11.9 Type 2 diabetes mellitus without complications; E03.9 Hypothyroidism, unspecified; Z20.822 Contact with and (suspected) exposure to COVID-19; Z99.81 Dependence on supplemental oxygen; G47.33 Obstructive sleep apnea (adult) (pediatric); J45.909 Unspecified asthma, uncomplicated; E66.01 Morbid (severe) obesity due to excess calories
CPT/HCPCS: 36415; 71045; 80048; 80053; 81001; 82962; 83735; 83880; 84436; 84443; 84479; 84484; 85025; 85378; 87086; 87088; 87186; 93005; 93306; 96374; 99284; C9803; U0003; U0005

== ENCOUNTER 2021-11-16 03:20 | Observation (INO) | payer MEDICARE, SELFPAY ==
[2021-11-16] VITALS (15 sets, daily range): BP systolic 102–148; BP diastolic 48–84; PULSE 62–95; RESP 16–28; TEMP 36.6–36.9; O2SAT 90–95; BMI 88.7; BMI 83.9; BMI 83.6
[2021-11-16 03:40] LABS: Basophils # 0.1 K/mm3 (0-0.2); Basophils % 0.7 % (0.1-2.0); Eosinophils # 0.1 K/mm3 (0.0-0.4); Eosinophils % 1.4 % (0.1-12.0); Hematocrit 33.6 % (37.0-47.0); Hemoglobin 9.6 g/dL (12.2-16.2); Lymphocytes # 0.7 K/mm3 (0.7-4.5); Lymphocytes % 7.6 % (10-50); Mean Corpuscular HGB Conc 28.6 g/dL (31.8-35.4); Mean Corpuscular Hemoglobin 27.3 pg (27.0-31.2); Mean Corpuscular Volume 95.4 fl (81-99); Mean Platelet Volume 7.9 fl (7.4-10.4); Monocytes # 0.5 K/mm3 (0.1-1.0); Monocytes % 5.1 % (1.7-9.3); Neutrophils # 7.8 K/mm3 (1.8-7.8); Neutrophils % 85.1 % (37.0-80.0); Platelet Count 365 K/mm3 (142-424); Red Blood Count 3.52 M/mm3 (4.20-5.40); Red Cell Distribution Width 17.2 % (11.5-17.5); White Blood Count 9.2 K/mm3 (4.8-10.8)
[2021-11-16 03:41] LABS: MANUAL DIFFERENTIAL MANUAL DIFFERENTIAL (MANUAL DIFF)
[2021-11-16 03:43] LABS: Alanine Aminotransferase 9 U/L (12-78); Albumin Level 3.8 g/dl (3.5-5.0); Albumin/Globulin Ratio 1.1 (1.1-1.8); Alkaline Phosphatase 74 U/L (38-126); Anion Gap 14.9 mEq/L (5-15); Aspartate Amino Transferase 14 U/L (14-36); Bilirubin,Total 0.2 mg/dl (0.2-1.3); Blood Urea Nitrogen 52 mg/dl (7-17); Calcium 8.8 mg/dl (8.4-10.2); Carbon Dioxide 22 mmol/L (22.0-30.0); Chloride 108 mmol/L (98-107); Creatinine Clearance Estimated 28 mL/min (50-200); Estimated Glomerular Filt Rate 27 ml/min (>60); GFR (African American) 32 ML/MIN (>60); Globulin 3.5 g/dL (1.3-3.2); Glucose 70 mg/dl (74-100); Potassium 5.9 mmoL/L (3.5-5.1); Sodium 139 mmol/L (136-145); Total Protein,Serum 7.3 g/dl (6.3-8.2)
[2021-11-16 03:48] LABS: C-Reactive Protein 19.1 mg/L (0-4)
[2021-11-16 03:54] LABS: POC Glucose,Bedside 67 (70-110)
[2021-11-16 04:02] LABS: Procalcitonin 0.078 ng/mL (0.0-2.0)
[2021-11-16 04:15] LABS: Erythrocyte Sedimentation Rate 122 mm/hr (0-30)
[2021-11-16 04:21] LABS: POC Glucose,Bedside 99 (70-110)
[2021-11-16 04:21] LABS: Eosinophils % 1 % (0-3); Lymphocytes % 10 % (10-50); Neutrophils % 88 % (42-76); Total Cells Counted 100
[2021-11-16 04:22] LABS: Acanthocytes 1+; Hypochromasia 1+; Platelet Estimate Normal; Tear Drop Cells 1+
[2021-11-16 04:59] LABS: POC Glucose,Bedside 69 (70-110)
--- NOTE | 2021-11-16 04:59 | XR_ITS ---
PROCEDURE INFORMATION: Exam: XR Chest Exam date and time: 11/16/2021 4:59 AM Age: 66 years old Clinical indication: Shortness of breath; Additional info: Low fsbs TECHNIQUE: Imaging protocol: XR of the chest. Views: 1 view. COMPARISON: CR XR CHEST PORTABLE 09/16/2021 3:31 PM FINDINGS: Lungs: Limited depth of inspiration. Pulmonary vascular prominence with diffuse interstitial prominence suggestive of pulmonary vascular congestion and pulmonary edema. No focal consolidation. Left suprahilar soft tissue prominence may reflect adenopathy. Pleural spaces: No pleural effusion. No pneumothorax. Heart/Mediastinum: Cardiomegaly. Bones/joints: No acute findings. IMPRESSION: 1. Cardiomegaly with pulmonary vascular prominence and diffuse interstitial prominence. Consider CHF. 2. Left suprahilar soft tissue prominence may reflect adenopathy. Follow-up CT is suggested.
[2021-11-16 05:21] LABS: NT Pro Brain Natriuretic Pep. 3640 pg/mL (0-125)
[2021-11-16 06:06] LABS: POC Glucose,Bedside 145 (70-110)
--- NOTE | 2021-11-16 06:20 | HMH.EDGENADL ---
ED Disposition Clinical Impression: GEOVANNY (acute kidney injury), Hypoglycemia, Morbid obesity, Abscess or cellulitis of knee, Hyperkalemia, Elevated erythrocyte sedimentation rate, Immobility Diabetes mellitus Qualifiers: Diabetes mellitus type: type 2 Diabetes mellitus custodial insulin use: unspecified parts counterman insulin use status Diabetes mellitus complication status: with other specified complication Qualified Code(s): E11.69 - Type 2 diabetes mellitus with other specified complication UTI (urinary tract infection) Qualifiers: Urinary tract infection type: site unspecified Hematuria presence: without hematuria Qualified Code(s): N39.0 - Urinary tract infection, site not specified Anemia Qualifiers: Anemia type: unspecified type Qualified Code(s): D64.9 - Anemia, unspecified Congestive heart failure Qualifiers: Heart failure type: unspecified Heart failure chronicity: chronic Qualified Code(s): I50.9 - Heart failure, unspecified A-fib Qualifiers: Atrial fibrillation type: unspecified Qualified Code(s): I48.91 - Unspecified atrial fibrillation Disposition: Admitted As Inpatient Condition on Discharge: Fair Instructions: DI for Hyperglycemia -- Adult Referrals: Blaze Hebert [Primary Care Provider] - - Critical Care Critical Care Time: No Attestation: On 11/16/21, the high probability of a clinically significant, sudden or life threatening deterioration of the following system(s) required my full and direct attention, intervention and personal management. The time I documented below is in addition to time spent performing reported procedures but includes the following listed in this critical care notation. Medical Decision Making - Medical Records Medical records reviewed: Yes: I reviewed the patient's medical records. - [place] Inquiry Pt receiving controlled substance: No Vital Signs: 11/16/21 03:08 Temperature 98.0 F Temperature Source Oral Pulse Rate [Right] 62 Respiratory Rate 20 Blood Pressure [Right Arm] 113/75 Blood Pressure Mean [Right Arm] 87 02 Sat by Pulse Oximetry 94 L Oxygen Delivery Method Room Air - Lab Data Lab results reviewed: Yes: I reviewed the patient's lab results. Lab Results 11/16/21 03:21: POC Glucose 67 L 11/16/21 03:25: WBC 9.2, RBC 3.52 L, Hgb 9.6 L, Hct 33.6 L, MCV 95.4, MCH 27.3, MCHC 28.6 L, RDW 17.2, Plt Count 365, MPV 7.9, Neut % (Auto) 85.1 H, Lymph % (Auto) 7.6 L, [place] % (Auto) 5.1, Eos % (Auto) 1.4, Baso % (Auto) 0.7, Neut # (Auto) 7.8, Lymph # (Auto) 0.7, [place] # (Auto) 0.5, Eos # (Auto) 0.1, Baso # (Auto) 0.1, Total Counted 100, Neutrophils % (Manual) 88 H, Lymphocytes % (Manual) 10, Eosinophils % (Manual) 1, Basophils % (Manual) 1.0, Platelet Estimate Normal, RBC Morphology Not Reportable, Hypochromasia 1+, Tear Drop Cells 1+, Acanthocytes (Spur) 1+, ESR 122 H 11/16/21 03:25: Sodium 139, Potassium 5.9 H, Chloride 108 H, Carbon Dioxide 22, Anion Gap 14.9, BUN 52 H, Creatinine 1.90 H, Estimated Creat Clear 28, Estimated GFR 27 L, Est GFR ( Amer) 32 L, Glucose 70 L, Calcium 8.8, Total Bilirubin 0.2, AST 14, ALT 9 L, Alkaline Phosphatase 74, C-Reactive Protein 19.1 H, Total Protein 7.3, Albumin 3.8, Globulin 3.5 H, Albumin/Globulin Ratio 1.1, Procalcitonin 0.078 11/16/21 03:25: Hemoglobin A1c 5.0 11/16/21 03:25: NT-Pro-B Natriuret Pep 3640 H 11/16/21 04:14: POC Glucose 99 11/16/21 04:52: POC Glucose 69 L 11/16/21 05:59: POC Glucose 145 H 11/16/21 06:45: Urine Color Yellow, Urine Appearance Clear, Urine pH 5.5, Ur Specific [place] 1.025, Urine Protein 1+, Urine Glucose (UA) Negative, Urine Ketones Negative, Urine Blood 1+, Urine Nitrate Negative, Urine Bilirubin Negative, Urine Urobilinogen 0.2, Ur Leukocyte Esterase 1+ A, Urine RBC 5-10, Urine WBC 5-10, Ur Squamous Epith Cells Occasional, Urine Bacteria 1+ 11/16/21 07:02: POC Glucose 149 H Result diagrams: 11/16/21 03:25 11/16/21 03:25 Orders (Tests/Meds): ED MEDICATIONS Generic Name Dose Route Start L
[2021-11-16 06:48] LABS: Microscopic, Urine URINE MICROSCOPIC (MICROSCOPIC)
[2021-11-16 06:52] LABS: Coronavirus 19, PCR Not Detected (NotDetected); Influenza A, PCR Not Detected (NotDetected); Influenza B, PCR Not Detected (NotDetected)
[2021-11-16 07:02] LABS: Appearance,Urine CLEAR (Clear); Bilirubin,Urine Negative (Negative); Blood, Urine 1+ (Negative); Color,Urine YELLOW (Yellow); Glucose,Urine (UA) Negative (Negative); Ketones,Urine Negative (Negative); Leukocyte Esterase,Urine 1+ (Negative); Nitrate,Urine Negative (Negative); PH,Urine 5.5 (5.0-8.5); Protein,Urine 1+ (Negative); Specific Gravity, Urine 1.025 (1.005-1.030); Urobilinogen,Urine 0.2 EU/dl (0.2)
[2021-11-16 07:10] LABS: POC Glucose,Bedside 149 (70-110)
[2021-11-16 07:22] LABS: Bacteria,Urine 1+ /lpf; Squamous Epithelial Cell,Urine Occasional #/hpf (0-5)
--- NOTE | 2021-11-16 07:49 | ECG_ITS ---
APPROVED REPORT Exam: Resting ECG HR:84 bpm ECG Measurements Heart Rate 84 AXES QRSd 86 QRS 85 QT 406 T 94 QTc 479 Conclusion Accelerated Junctional rhythm with fusion complexes Low voltage QRS Septal infarct, age undetermined Abnormal ECG Electronically signed by : Bg Bruno MD 11/18/2021 13:47:24
--- NOTE | 2021-11-16 07:54 | P.CONPHA_ITS ---
[facility] VTE Monitoring - Patient Demographics Admission date: 11/16/21 Report Date: 11/16/21 Time: 07:54 Allergies/Adverse Reactions: Patient Allergies propofol [From Diprivan] Adverse Reaction (Intermediate, Verified 06/17/20 10:02) HALLUCINATIONS Height: 1.68 m Weight: 249.476 kg - VTE Risk Labs: VTE Related Lab Results Hgb 9.6 g/dL (12.2-16.2) L 11/16/21 03:25 Hct 33.6 % (37.0-47.0) L 11/16/21 03:25 Plt Count 365 K/mm3 (142-424) 11/16/21 03:25 BUN 52 mg/dl (7-17) H 11/16/21 03:25 Creatinine 1.90 mg/dl (0.52-1.04) H 11/16/21 03:25 Estimated Creat Clear 28 mL/min (50-200) 11/16/21 03:25 Clinical Trial Participant: No - Prophylaxis VTE Prophylaxis Ordered?: Yes Types of VTE Prophylaxis: TEDS Knee High
--- NOTE | 2021-11-16 08:05 | PC.NURSE ---
WOUND NOTED TO POSTERIOR RT KNEE. REDNESS AND FOUL DRAINAGE NOTED
[2021-11-16 08:32] LABS: Chol/HDL Ratio 2.3 (1-3.5); Cholesterol 94 mg/dl (140-200); HDL Cholesterol 41 mg/dl (40-60); Magnesium 2.4 mg/dl (1.6-2.3); Triglycerides 99 mg/dl (30-150); VLDL Cholesterol 20 mg/dL (0-40)
[2021-11-16 08:33] LABS: POC Glucose,Bedside 158 (70-110)
[2021-11-16 08:43] LABS: Direct LDL Cholesterol 31.74 mg/dL (100-129)
[2021-11-16 08:50] LABS: T4 (Thyroxine) 7.7 ug/dl (5.53-11.0)
[2021-11-16 09:04] LABS: Thyroid Stimulating Hormone 8.02 uIU/mL (0.465-4.68)
--- NOTE | 2021-11-16 10:06 | HMH.PHAINT ---
clarified home medication list using list from patient, list from Clinic pharmacy
--- NOTE | 2021-11-16 13:45 | DIET.NUTRFU ---
RD reviewed patients chart and interviewed her about her weights. She was her 09/18 with weight of 214kg and current wt is 236kg, she has gained 50# of 10% in ~60 days. She takes diuretic tx at home, not continued at this time. Reviewed diet with patient, changed to diabetic, 2gmNa secondary to PMH. Labs on 11/16: Na 139, K 5.9H, BUN 52H, Cr 1.9H, Glucose 70L. Diuretic tx maybe on hold d/t kidney fxn. NS in place. Will review weight changes with provider.
--- NOTE | 2021-11-16 13:51 | HMH.HP ---
*Admission Date: 11/16/21 *Chief complaint: low glu *History of present illness: this patient presented to the [facility] ed via [facility]-pt was confused this am and found by ems to have dec glu - pt is diabetic and last took metformin last pm - no vomiting and no diarrhea - no cough - pt with reddness tender rt post knee - pt with no fever - pt admitted with acute eryn and persistent hypoglycemia [facility] History I have reviewed the patient's past medical history: Yes Medical History: Reports:: Asthma, Atrial Fibrillation, Congestive Heart Failure, Diabetes Mellitus Type 2, Hyperlipidemia, Hypertension Denies:: Chronic Obstructive Pulmonary Disease (COPD) *Have you ever received a pneumonia vaccine?: No *Have you received a flu vaccine this season?: No Other Medical History: Reports: Anemia, Arthritis, Hypothyroidism, Sinus Problems, Thyroid Disease, Other (Morbid Obesity, History of Lung infection with intubation, PSVT) Other Surgeries: Yes: , Dilation and Curettage, Thyroidectomy, Other (Right lung surgery) - *Social History Smoking Status: Never smoker Alcohol Intake: never *Occupational Status:: disabled Household Members: children *Travel in the last 8 weeks: None Family Hx:: Cancer, Diabetes, Heart Attack, Kidney Disease, Thyroid Disorder Review of Systems - Review of Systems Review of systems:: pertinent systems reviewed and negative unless documented below - Constitutional Denies fever(s) - Eyes Denies change in vision - ENT Denies sore throat - *Cardiovascular Denies chest pain at rest - *Respiratory Denies cough - *Gastrointestinal Denies abdominal pain - *Genitourinary Denies blood in urine - *Musculoskeletal Denies joint swelling - Integumentary/Breasts Denies rash - *Neurologic Reports weakness, Denies localized weakness, Denies headache(s), Denies seizure-like activity - Psychiatric Denies paranoia Meds Home Medications Medication Instructions Recorded Confirmed Type ALPRAZolam [Alprazolam 0.25mg 0.25 mg PO TIDP PRN 09/16/21 11/16/21 History Tab] Acetaminophen [Tylenol 325mg 325 mg PO HS 09/16/21 11/16/21 History Tablet] Aspirin [Aspirin 325mg Tab] 325 mg PO HS 09/16/21 11/16/21 History Famotidine [Acid Controller] 20 mg PO DAILY 09/16/21 11/16/21 History Gabapentin [Gabapentin 100mg Cap] 100 mg PO HS 09/16/21 11/16/21 History Glimepiride 2 mg PO BIDWMEAL 09/16/21 11/16/21 History Hydrocodone/Acetaminophen 1 each PO Q6HP PRN 09/16/21 11/16/21 History [Hydrocodone-Acetamin 7.5-325] Ibuprofen [Ibuprofen 400mg 400 mg PO Q4HP PRN 09/16/21 11/16/21 History Tablet] Ipratropium/Albuterol Sulfate 3 ml IH Q6 PRN 09/16/21 11/16/21 History [Duoneb 3mL neb] Levothyroxine Sodium 125 mcg PO DAILY 09/16/21 11/16/21 History [Levothyroxine 125mcg (0.125mg) Tab] Linagliptin [Tradjenta 5mg tablet] 5 mg PO DAILY 09/16/21 11/16/21 History Metformin HCl [Metformin 1000mg 1,000 mg PO BID 09/16/21 11/16/21 History Tablets] Omeprazole [Omeprazole 20mg Tab] 20 mg PO DAILY 09/16/21 11/16/21 History Potassium Chloride [Klor-Con M20] 20 meq PO DAILY 09/16/21 11/16/21 History Pravastatin Sodium [Pravachol 40mg 40 mg PO HS 09/16/21 11/16/21 History Tablet] Sennosides/Docusate Sodium 1 each PO HS PRN 09/16/21 11/16/21 History [Docusate Sodium-Senna Tablet] Triamcinolone Aceton/Silicones 1 each TP TIDP PRN 09/16/21 11/16/21 History [Silalite 0.1% Devyn] dilTIAZem HCL [Diltiazem 360mg 360 mg PO DAILY 09/16/21 11/16/21 History 24Hr ER Cap] diphenhydrAMINE HCL [Benadryl] 25 mg PO HSP PRN 09/16/21 11/16/21 History lisinopriL [Lisinopril] 10 mg PO BID 09/16/21 11/16/21 History Ferrous Sulfate [Ferosul] 325 mg PO BID 09/17/21 11/16/21 History dilTIAZem HCL [Diltiazem 120mg 120 mg PO DAILY 09/17/21 11/16/21 History 12Hr ER Cap] Furosemide [Lasix 40mg tab] 40 mg PO DAILY 11/16/21 11/16/21 History Metoprolol Tartrate [Lopressor 25 mg PO BID
[2021-11-16 17:43] LABS: POC Glucose,Bedside 202 (70-110)
[2021-11-16 17:43] LABS: POC Glucose,Bedside 118 (70-110)
--- NOTE | 2021-11-16 19:27 | PC.WOUNDNOTE ---
scabbed areas on RLE excoriation noted to abd fold on rt side umbilical hernia (2) open areas. one purulent area and one scabbed area excoriation noted to right breast scattered scabbed areas to LLE multiple small, excoriated areas. dressing applied excoriation noted to left abdominal fold excoriation to left axillary area excoriation noted to back fold
[2021-11-16 22:14] LABS: POC Glucose,Bedside 93 (70-110)
--- NOTE | 2021-11-16 23:38 | PC.NURSE ---
Encourages patient to reposition often for pressure reduction. Patient refuses at this time.
[2021-11-17] VITALS (9 sets, daily range): BP systolic 96–121; BP diastolic 51–65; PULSE 72–98; RESP 16–24; TEMP 36.4–36.9; O2SAT 91–96; BMI 83.2
[2021-11-17 07:14] LABS: POC Glucose,Bedside 115 (70-110)
--- NOTE | 2021-11-17 08:00 | PC.NURSE ---
patient rested well during night. VSS on 2L per NC. No c/o pain. No issues with hypoglycemia. refused repositioning. Encouraged turning for pressure reduction.
--- NOTE | 2021-11-17 08:17 | CA_ITS ---
APPROVED REPORT EXAM: Comprehensive 2D, Doppler, and color-flow Echocardiogram Facialist: Deepa Green RT(R) Ht: 5 ft 6 in Wt: 520lbs BSA: 3.00 BP: 133/75 mmHg Indications: CHF, HTN, DM, SOB, morbid obesity, hyperlipidemia, AFIB, CHF, DM, home O2 M-Mode Dimensions RVDd 4.16 cm (0.9-2.6) LA Diam 5.65 cm (1.9-4.0) LVDd 5.19 cm (3.5-5.7) Ao Diam 2.56 cm (2.0-3.7) LVDs 4.07 cm (3.5-5.7) IVSd 0.98 cm (0.6-1.1) PWd 0.72 cm (0.6-1.1) EF (Teich) 43.40% FS 21.60% EDV (Teich) 128.90 mL ESV (Teich) 72.90 mL Conclusion 1. Technically very difficult and limited study study. Endocardial surface of very poorly visualized. Valvular structures are not well visualized. 2. Biatrial enlargement, normal left ventricular size, probably preserved left ventricular systolic function, visually estimated ejection fraction is 55%. Endocardium is also very poorly visualized. 3. No significant pericardial effusion noted. 4. There is no mitral or tricuspid valve stenosis, 5. Aortic valve is poorly visualized. 6. Inferior vena cava is dilated without significant inspiratory collapse. 7. Right atrium and right ventricle are moderately enlarged with normal contractility. Electronically signed by : Bhavesh Holder MD 11/17/2021 19:52:21
--- NOTE | 2021-11-17 08:46 | HMH.CNCARD ---
History of Present Illness Consult date: 11/17/21 Requesting physician: Dk Lopez Consult reason: known to you Chief complaint: Hypoglycemia, A. fib, Diastolic CHF, possible infection Additional Medical History:: 1. HTN/HHD with history of diastolic CHF A. Echo, 09/17/2021, 1. Biatrial enlargement, normal left ventricular size, mild concentric left ventricular hypertrophy, visually estimated ejection fraction 50 to 55%, there is abnormal septal motion. Diastolic parameters are inconclusive. 2. Moderately enlarged right ventricle with mild reduced contractility. 3. Trace mitral and mild tricuspid regurgitation, calculated right ventricular systolic pressure is 46 mmHg. 4. No significant pericardial effusion noted. 5. Inferior vena cava is dilated without significant inspiratory collapse. Electronically signed by : Bhavesh Holder MD 09/17/2021 13:14:12 2. New onset A. fib, 09/2021, with CHADS-VASC score of 4 A. Xarelto therapy 3. HTN 4. HLD 5. DM, type 2 6. Morbid obesity 7. Acute renal insufficiency History of present illness: 66 yo WF with one week of fatigue with altered mental status yesterday associated with home BS reading of 49 per patient. Pt relates erratic readings over the same time. Family concerned and called EMS to have transported to ER. Admitted due to hypoglycemia, GEOVANNY and possible CHF. Pt admits to holding lasix for one week due to fatigue with suspected wt gain. Cardiology consulted for CHF and A. fib on Xarelto. [facility] History Medical History: Reports:: Asthma, Atrial Fibrillation, Congestive Heart Failure, Diabetes Mellitus Type 2, Hyperlipidemia, Hypertension Denies:: Chronic Obstructive Pulmonary Disease (COPD) *Have you ever received a pneumonia vaccine?: No *Have you received a flu vaccine this season?: No Other Medical History: Reports: Anemia, Arthritis, Hypothyroidism, Sinus Problems, Thyroid Disease, Other (Morbid Obesity, History of Lung infection with intubation, PSVT) Other Surgeries: Yes: , Dilation and Curettage, Thyroidectomy, Other (Right lung surgery) - *Social History Smoking Status: Never smoker Alcohol Intake: never *Occupational Status:: disabled Household Members: children *Travel in the last 8 weeks: None Family Hx:: Cancer, Diabetes, Heart Attack, Kidney Disease, Thyroid Disorder Meds Home Medications Medication Instructions Recorded Confirmed Type ALPRAZolam [Alprazolam 0.25mg 0.25 mg PO TIDP PRN 09/16/21 11/16/21 History Tab] Acetaminophen [Tylenol 325mg 325 mg PO HS 09/16/21 11/16/21 History Tablet] Aspirin [Aspirin 325mg Tab] 325 mg PO HS 09/16/21 11/16/21 History Famotidine [Acid Controller] 20 mg PO DAILY 09/16/21 11/16/21 History Gabapentin [Gabapentin 100mg Cap] 100 mg PO HS 09/16/21 11/16/21 History Glimepiride 2 mg PO BIDWMEAL 09/16/21 11/16/21 History Hydrocodone/Acetaminophen 1 each PO Q6HP PRN 09/16/21 11/16/21 History [Hydrocodone-Acetamin 7.5-325] Ibuprofen [Ibuprofen 400mg 400 mg PO Q4HP PRN 09/16/21 11/16/21 History Tablet] Ipratropium/Albuterol Sulfate 3 ml IH Q6 PRN 09/16/21 11/16/21 History [Duoneb 3mL neb] Levothyroxine Sodium 125 mcg PO DAILY 09/16/21 11/16/21 History [Levothyroxine 125mcg (0.125mg) Tab] Linagliptin [Tradjenta 5mg tablet] 5 mg PO DAILY 09/16/21 11/16/21 History Metformin HCl [Metformin 1000mg 1,000 mg PO BID 09/16/21 11/16/21 History Tablets] Omeprazole [Omeprazole 20mg Tab] 20 mg PO DAILY 09/16/21 11/16/21 History Potassium Chloride [Klor-Con M20] 20 meq PO DAILY 09/16/21 11/16/21 History Pravastatin Sodium [Pravachol 40mg 40 mg PO HS 09/16/21 11/16/21 History Tablet] Sennosides/Docusate Sodium 1 each PO HS PRN 09/16/21 11/16/21 History [Docusate Sodium-Senna Tablet] Triamcinolone Aceton/Silicones 1 each TP TIDP PRN 09/16/21 11/16/21 History [Silalite 0.1% Devyn] dilTIAZem HCL [Diltiazem 360mg 360 mg PO DAILY 09/16/21 11/16/21 History 24Hr ER
--- NOTE | 2021-11-17 09:29 | HMH.ACPN2 ---
Internal Medicine - PN: Subj *Date: 11/17/21 *Time: 08:00 Interval history: pt states doing well Exam Vital signs and Labs for Last 24 Hours: Temp Pulse Resp BP Pulse Ox 98.2 F 93 H 20 117/65 94 L 11/17/21 08:00 11/17/21 08:00 11/17/21 08:00 11/17/21 08:00 11/17/21 08:00 Laboratory Results - last 24 hr 11/16/21 11:37: POC Glucose 202 H 11/16/21 17:14: POC Glucose 118 H 11/16/21 22:04: POC Glucose 93 11/17/21 06:40: POC Glucose 115 H I & O for Last 24 hours: Intake & Output 11/14/21 11/15/21 11/16/21 11/17/21 11:59 11:59 11:59 11:59 Intake Total 1853 / 1853 Output Total 0 / 0 1800 / 1800 Balance 0 / 0 53 / 53 Weight 520 lb 4.655 oz 518 lb 1.381 oz Microbiology Reports for the Last 24 Hours: Microbiology 11/16/21 07:30 Knee,Right Gram Stain - Final 11/16/21 07:30 Knee,Right Wound Culture - Preliminary 11/16/21 06:45 Urine,Catheterized Urine Culture - Preliminary - Constitutional no acute distress, morbidly obese - *Routine HEENT Exam Head: Present: normocephalic Eye: Present: PERRL ENT: Present: mucous membranes moist - *Routine Neck Exam Present: supple. Absent: lymphadenopathy - *Routine Respiratory Exam Present: CTA bilaterally - *Routine Cardiovascular Exam Present: irregular rhythm - *Routine Abdominal Exam Present: soft, normoactive bowel sounds. Absent: tenderness - *Routine Extremities Exam Absent: cyanosis, clubbing, edema Assessment and Plan (1) Hypoglycemia Status: Acute Category: Medical Code(s): E16.2 - Hypoglycemia, unspecified (2) A-fib Status: Acute Qualifiers: Atrial fibrillation type: unspecified Qualified Code(s): I48.91 - Unspecified atrial fibrillation Category: Medical Code(s): I48.91 - Unspecified atrial fibrillation (3) GEOVANNY (acute kidney injury) Status: Acute Category: Medical Code(s): N17.9 - Acute kidney failure, unspecified (4) Abscess or cellulitis of knee Status: Acute Category: Medical (5) Anemia Status: Acute Qualifiers: Anemia type: unspecified type Qualified Code(s): D64.9 - Anemia, unspecified Category: Medical Code(s): D64.9 - Anemia, unspecified (6) Congestive heart failure Status: Acute Qualifiers: Heart failure type: unspecified Heart failure chronicity: chronic Qualified Code(s): I50.9 - Heart failure, unspecified Category: Medical Code(s): I50.9 - Heart failure, unspecified (7) Diabetes mellitus Status: Acute Qualifiers: Diabetes mellitus type: type 2 Diabetes mellitus fdc insulin use: unspecified fdc insulin use status Diabetes mellitus complication status: with other specified complication Qualified Code(s): E11.69 - Type 2 diabetes mellitus with other specified complication Category: Medical Code(s): E11.9 - Type 2 diabetes mellitus without complications (8) Elevated erythrocyte sedimentation rate Status: Acute Category: Medical Code(s): R70.0 - Elevated erythrocyte sedimentation rate (9) Morbid obesity Status: Chronic Category: Medical Code(s): E66.01 - Morbid (severe) obesity due to excess calories (10) Hyperlipemia Status: Chronic Category: Medical Code(s): E78.5 - Hyperlipidemia, unspecified (11) Hypertension Status: Chronic Category: Medical Code(s): I10 - Essential (primary) hypertension - Assessment and plan all Dx Assessment and Plan for all problems:: rounded with dr farmer all orders per dr farmer echo cardiology consult hold oral dm meds
[2021-11-17 11:48] LABS: POC Glucose,Bedside 147 (70-110)
--- NOTE | 2021-11-17 12:45 | DIET.NUTRFU ---
Labs indicate patient has poor renal function. K 5.9H, BUN 52H, and Cr 1.[address] Espino has expressed that patient could benefit from renal diet. Provided patient with renal diet education handout. Patient seems receptive of renal diet but still unsure if she is willing to make dietary changes. Also provided Nutrition Basic handout. Patient seemed to be knowledgeable of the basics of nutrition.
[2021-11-17 16:25] LABS: POC Glucose,Bedside 186 (70-110)
[2021-11-17 22:06] LABS: POC Glucose,Bedside 194 (70-110)
[2021-11-18] VITALS (25 sets, daily range): BP systolic 101–167; BP diastolic 43–77; PULSE 70–104; RESP 18–24; TEMP 36.5–37.2; O2SAT 93–100; BMI 83.2
[2021-11-18 05:36] LABS: Occult Blood,Stool Positive (Negative)
[2021-11-18 06:31] LABS: POC Glucose,Bedside 168 (70-110)
[2021-11-18 06:33] LABS: Basophils % 0.5 % (0.1-2.0); Eosinophils # 0.2 K/mm3 (0.0-0.4); Hemoglobin 8.7 g/dL (12.2-16.2); Lymphocytes # 0.8 K/mm3 (0.7-4.5); Lymphocytes % 11.2 % (10-50); Mean Corpuscular HGB Conc 29.2 g/dL (31.8-35.4); Mean Corpuscular Hemoglobin 27.2 pg (27.0-31.2); Mean Corpuscular Volume 93.3 fl (81-99); Monocytes # 0.5 K/mm3 (0.1-1.0); Monocytes % 6.5 % (1.7-9.3); Neutrophils # 5.9 K/mm3 (1.8-7.8); Neutrophils % 78.7 % (37.0-80.0); Platelet Count 309 K/mm3 (142-424); Red Blood Count 3.21 M/mm3 (4.20-5.40); White Blood Count 7.5 K/mm3 (4.8-10.8)
--- NOTE | 2021-11-18 06:45 | SW/DCPLANNER ---
Addendum entered by Jasmyn Joy 11/19/21 09:47: SET UP HOME HEALTH FOR THIS PATIENT THAT IS DISCHARGING HOME TODAY...SHE WILL USE PERSONAL TOUCH THAT SERVICES [facility]. SHE WILL RECEIVE PT/OT/SN AND WILL NEED LABS DRAWN ON MONDAY.. PATIENT WILL REQUIRE AN AMBULANCE TRANSPORT TO GET HER HOME R/T HER SIZE..DISCHARGE HOME LATER TODAY..... Original Note: PATIENT ADMITTED TO [facility] WITH ACUTE KIDNEY INJURY, HYPOGLYCEMIA, CELLULITIS OF RIGHT KNEE. PATIENT HAD A RECENT ADMIT TO [facility] A FEW WEEKS AGO.. SHE RESIDES AT HOME AND HAS A HARD TIME GETTING IN AND OUT OF HER MOBILE HOME. SHE SAID SHE ONLY HAS STEPS AND NO RAILING TO HOLD ON TO.. SHE CALLED ME A MONTH OR SO AGO AND TOLD ME SHE NEEDED A RAMP. I DID SOME RESEARCH AND CALLED ONE OF THE GROUP OF MEN THAT GOES TO A LOCAL [employer] TO SEE IF THEY COULD BUILD HER A RAMP AND PATIENT STATED THEY DID MAKE CONTACT WITH HER BUT SHE DOES NOT HAVE A RAMP AT THIS TIME.. SHE HAS A DAUGHTER AND GRANDCHILDREN THAT LIVE WITH HER HELP TO CARE FOR HER...WILL FOLLOW PATIENT THROUGH HER STAY AND WILL ASSIST WITH ANY NEEDS SHE MAY HAVE AT TIME OF DISPOSITION.
[2021-11-18 06:55] LABS: Anion Gap 11.3 mEq/L (5-15); Blood Urea Nitrogen 39 mg/dl (7-17); Calcium 8.5 mg/dl (8.4-10.2); Carbon Dioxide 22 mmol/L (22.0-30.0); Chloride 108 mmol/L (98-107); Creatinine Clearance Estimated 41 mL/min (50-200); Estimated Glomerular Filt Rate 41 ml/min (>60); GFR (African American) 50 ML/MIN (>60); Glucose 161 mg/dl (74-100); Potassium 5.3 mmoL/L (3.5-5.1); Sodium 136 mmol/L (136-145)
--- NOTE | 2021-11-18 10:04 | HMH.PNCARD ---
Subjective Date: 11/18/21 Time: 10:04 Principal diagnosis: CHF, A. fib, GI bleed, Anemia Interval history: 66 yo WF in bed in NAD. Conversational dyspnea noted. Appears pale. Exam Vital signs and Labs for Last 24 Hours: Temp Pulse Resp BP Pulse Ox 98.1 F 89 24 133/67 98 11/18/21 07:21 11/18/21 07:21 11/18/21 07:21 11/18/21 07:21 11/18/21 07:21 Laboratory Results - last 24 hr 11/16/21 06:45: Urine Color Yellow, Urine Appearance Clear, Urine pH 5.5, Ur Specific [place] 1.025, Urine Protein 1+, Urine Glucose (UA) Negative, Urine Ketones Negative, Urine Blood 1+, Urine Nitrate Negative, Urine Bilirubin Negative, Urine Urobilinogen 0.2, Ur Leukocyte Esterase 1+ A, Urine RBC 5-10, Urine WBC 5-10, Ur Squamous Epith Cells Occasional, Urine Bacteria 1+ 11/17/21 11:32: POC Glucose 147 H 11/17/21 16:12: POC Glucose 186 H 11/17/21 20:27: POC Glucose 194 H 11/18/21 04:22: Stool Occult Blood Positive A 11/18/21 05:52: Sodium 136, Potassium 5.3 H, Chloride 108 H, Carbon Dioxide 22, Anion Gap 11.3, BUN 39 H, Creatinine 1.30 H D, Estimated Creat Clear 41, Estimated GFR 41 L, Est GFR ( Amer) 50 L D, Glucose 161 H, Calcium 8.5 11/18/21 05:52: WBC 7.5, RBC 3.21 L, Hgb 8.7 L, Hct 30.0 L, MCV 93.3, MCH 27.2, MCHC 29.2 L, RDW 17.0, Plt Count 309, MPV 8.0, Neut % (Auto) 78.7, Lymph % (Auto) 11.2, [place] % (Auto) 6.5, Eos % (Auto) 3.0, Baso % (Auto) 0.5, Neut # (Auto) 5.9, Lymph # (Auto) 0.8, [place] # (Auto) 0.5, Eos # (Auto) 0.2, Baso # (Auto) 0.0 11/18/21 06:22: POC Glucose 168 H I & O for Last 24 hours: Intake & Output 11/15/21 11/16/21 11/17/21 11/18/21 11:59 11:59 11:59 11:59 Intake Total 1853 / 1853 360 / 360 Output Total 0 / 0 1800 / 1800 1400 / 1400 Balance 0 / 0 53 / 53 -1040 / -1040 Weight 520 lb 4.655 oz 518 lb 1.381 oz 518 lb 1.381 oz Microbiology Reports for the Last 24 Hours: Microbiology 11/16/21 07:30 Knee,Right Gram Stain - Final 11/16/21 07:30 Knee,Right Wound Culture - Preliminary Gram Positive Cocci 11/16/21 06:45 Urine,Catheterized Urine Culture - Preliminary Gram Negative Rods - *Routine Respiratory Exam Present: CTA bilaterally, diminished air movement - *Routine Cardiovascular Exam Present: RRR - *Routine Extremities Exam Present: edema. Absent: cyanosis, clubbing Progress Note: A&P (1) GEOVANNY (acute kidney injury) Status: Acute (2) Abscess or cellulitis of knee Status: Acute (3) Anemia Status: Acute (4) Congestive heart failure Status: Acute (5) Diabetes mellitus Status: Acute (6) Elevated erythrocyte sedimentation rate Status: Acute (7) Hyperkalemia Status: Acute (8) Hypoglycemia Status: Acute (9) Immobility Status: Acute (10) UTI (urinary tract infection) Status: Acute (11) Hyperlipemia Status: Chronic (12) Hypertension Status: Chronic (13) Morbid obesity Status: Chronic (14) Elevated d-dimer Status: Acute Assessment and Plan for All Diagnoses:: 1. Hypoglycemia, DM, per PCP. 2. A. fib, on Xarelto but will hold for now due to GI bleed, anemia. Rate controlled on combo of Dilt/Metoprolol. 3. Anemia, stool positive for blood. Remote blood transfusion. REcommend blood transfusion and 40 mg IV lasix after each unit. 4. Renal insufficiency, improved. 5. Morbid obesity 6. Acute on chronic diastolic CHF, exacerbated by holding lasix and anemia.
--- NOTE | 2021-11-18 13:42 | HMH.ACPN2 ---
Internal Medicine - PN: Subj *Date: 11/18/21 *Time: 20:05 Interval history: 66-year-old female patient resting in bed, current oxygenation 94% on 4 L per nasal cannula. She does report she had some shortness of breath during night and did not sleep well. Exam Vital signs and Labs for Last 24 Hours: Temp Pulse Resp BP Pulse Ox 98.2 F 76 22 134/77 96 11/18/21 12:00 11/18/21 12:00 11/18/21 12:00 11/18/21 12:00 11/18/21 12:00 Laboratory Results - last 24 hr 11/16/21 06:45: Urine Color Yellow, Urine Appearance Clear, Urine pH 5.5, Ur Specific [place] 1.025, Urine Protein 1+, Urine Glucose (UA) Negative, Urine Ketones Negative, Urine Blood 1+, Urine Nitrate Negative, Urine Bilirubin Negative, Urine Urobilinogen 0.2, Ur Leukocyte Esterase 1+ A, Urine RBC 5-10, Urine WBC 5-10, Ur Squamous Epith Cells Occasional, Urine Bacteria 1+ 11/17/21 16:12: POC Glucose 186 H 11/17/21 20:27: POC Glucose 194 H 11/18/21 04:22: Stool Occult Blood Positive A 11/18/21 05:52: Sodium 136, Potassium 5.3 H, Chloride 108 H, Carbon Dioxide 22, Anion Gap 11.3, BUN 39 H, Creatinine 1.30 H D, Estimated Creat Clear 41, Estimated GFR 41 L, Est GFR ( Amer) 50 L D, Glucose 161 H, Calcium 8.5 11/18/21 05:52: WBC 7.5, RBC 3.21 L, Hgb 8.7 L, Hct 30.0 L, MCV 93.3, MCH 27.2, MCHC 29.2 L, RDW 17.0, Plt Count 309, MPV 8.0, Neut % (Auto) 78.7, Lymph % (Auto) 11.2, [place] % (Auto) 6.5, Eos % (Auto) 3.0, Baso % (Auto) 0.5, Neut # (Auto) 5.9, Lymph # (Auto) 0.8, [place] # (Auto) 0.5, Eos # (Auto) 0.2, Baso # (Auto) 0.0 11/18/21 06:22: POC Glucose 168 H 11/18/21 13:00: Crossmatch (AHG) See Detail I & O for Last 24 hours: Intake & Output 11/15/21 11/16/21 11/17/21 11/18/21 23:59 23:59 23:59 23:59 Intake Total 360 / 360 1493 / 1493 480 / 480 Output Total 1000 / 1800 1600 / 2200 1300 / 1300 Balance -640 / -1440 -107 / -707 -820 / -820 Weight 520 lb 4.655 oz 518 lb 1.381 oz 518 lb 1.381 oz Microbiology Reports for the Last 24 Hours: Microbiology 11/16/21 07:30 Knee,Right Gram Stain - Final 11/16/21 07:30 Knee,Right Wound Culture - Preliminary Gram Positive Cocci 11/16/21 06:45 Urine,Catheterized Urine Culture - Preliminary Gram Negative Rods - Constitutional no acute distress, chronically ill appearing - *Routine HEENT Exam Head: Present: normocephalic Eye: Present: EOMI ENT: Present: mucous membranes moist - *Routine Neck Exam Present: trachea midline. Absent: tracheal deviation - *Routine Respiratory Exam Present: decreased breath sounds. Absent: accessory muscle use - *Routine Cardiovascular Exam Present: RRR - *Routine Abdominal Exam Present: soft, normoactive bowel sounds, obese. Absent: tenderness - *Routine Extremities Exam Present: edema, full ROM, pulses intact. Absent: cyanosis, calf tenderness - *Routine Skin Exam Present: intact, erythema, dry. Absent: cyanosis Comments: Reddened areas BLE - *Routine Neurological Exam Present: alert, oriented X3. Absent: motor deficit - Routine Psychiatric Exam Present: normal affect, normal thought process. Absent: auditory hallucinations Assessment and Plan (1) GEOVANNY (acute kidney injury) Status: Acute Category: Medical Code(s): N17.9 - Acute kidney failure, unspecified (2) Abscess or cellulitis of knee Status: Acute Category: Medical (3) Anemia Status: Acute Qualifiers: Anemia type: unspecified type Qualified Code(s): D64.9 - Anemia, unspecified Category: Medical Code(s): D64.9 - Anemia, unspecified (4) Congestive heart failure Status: Acute Qualifiers: Heart failure type: unspecified Heart failure chronicity: chronic Qualified Code(s): I50.9 - Heart failure, unspecified Category: Medical Code(s): I50.9 - Heart failure, unspecified (5) Diabetes mellitus Status: Acute Qualifiers: Diabetes mellitus type: type 2 Diabetes mellitus l
--- NOTE | 2021-11-18 20:03 | PC.NURSE ---
Pt did have x 1 loose tarry stool this shift.
[2021-11-18 22:36] LABS: POC Glucose,Bedside 187 (70-110)
[2021-11-18 22:36] LABS: POC Glucose,Bedside 221 (70-110)
[2021-11-18 22:36] LABS: POC Glucose,Bedside 184 (70-110)
[2021-11-19] VITALS (11 sets, daily range): BP systolic 97–137; BP diastolic 46–70; PULSE 80–96; RESP 17–26; TEMP 36.3–36.8; O2SAT 90–98; BMI 85.1
--- NOTE | 2021-11-19 05:30 | PC.NURSE ---
Multiple nursing staff attempted to get access for post H&H and have been unsuccessful. Lab notified and says they will come up to get labs.
[2021-11-19 06:31] LABS: Basophils # 0.1 K/mm3 (0-0.2); Basophils % 0.8 % (0.1-2.0); Eosinophils # 0.3 K/mm3 (0.0-0.4); Eosinophils % 4.9 % (0.1-12.0); Hematocrit 32.1 % (37.0-47.0); Hemoglobin 9.5 g/dL (12.2-16.2); Lymphocytes # 0.9 K/mm3 (0.7-4.5); Lymphocytes % 13.3 % (10-50); Mean Corpuscular HGB Conc 29.7 g/dL (31.8-35.4); Mean Corpuscular Hemoglobin 27.5 pg (27.0-31.2); Mean Corpuscular Volume 92.7 fl (81-99); Mean Platelet Volume 7.8 fl (7.4-10.4); Monocytes # 0.5 K/mm3 (0.1-1.0); Monocytes % 6.7 % (1.7-9.3); Neutrophils % 74.3 % (37.0-80.0); Platelet Count 301 K/mm3 (142-424); Red Blood Count 3.47 M/mm3 (4.20-5.40); Red Cell Distribution Width 17.1 % (11.5-17.5); White Blood Count 6.7 K/mm3 (4.8-10.8)
[2021-11-19 06:49] LABS: POC Glucose,Bedside 164 (70-110)
[2021-11-19 07:20] LABS: Anion Gap 9.9 mEq/L (5-15); Blood Urea Nitrogen 33 mg/dl (7-17); Calcium 8.4 mg/dl (8.4-10.2); Carbon Dioxide 24 mmol/L (22.0-30.0); Chloride 108 mmol/L (98-107); Creatinine Clearance Estimated 41 mL/min (50-200); Estimated Glomerular Filt Rate 41 ml/min (>60); GFR (African American) 50 ML/MIN (>60); Glucose 145 mg/dl (74-100); Potassium 4.9 mmoL/L (3.5-5.1); Sodium 137 mmol/L (136-145)
--- NOTE | 2021-11-19 08:55 | HMH.DCSUM ---
General - General Admission date:: 11/16/21 Discharge date: 11/19/21 HPI HPI: this patient presented to the [facility] ed via [facility]-pt was confused this am and found by ems to have dec glu - pt is diabetic and last took metformin last pm - no vomiting and no diarrhea - no cough - pt with reddness tender rt post knee - pt with no fever - pt admitted with acute eryn and persistent hypoglycemia Hospital Course Hospital Course: Laboratory Tests 11/16/21 11/16/21 11/16/21 03:21 03:25 03:25 WBC 9.2 RBC 3.52 L Hgb 9.6 L Hct 33.6 L MCV 95.4 MCH 27.3 MCHC 28.6 L RDW 17.2 Plt Count 365 MPV 7.9 Neut % (Auto) 85.1 H Lymph % (Auto) 7.6 L [place] % (Auto) 5.1 Eos % (Auto) 1.4 Baso % (Auto) 0.7 Neut # (Auto) 7.8 Lymph # (Auto) 0.7 [place] # (Auto) 0.5 Eos # (Auto) 0.1 Baso # (Auto) 0.1 Total Counted 100 Neutrophils % (Manual) 88 H Lymphocytes % (Manual) 10 Eosinophils % (Manual) 1 Basophils % (Manual) 1.0 Platelet Estimate Normal RBC Morphology Not Reportable Hypochromasia 1+ Tear Drop Cells 1+ Acanthocytes (Spur) 1+ ESR 122 H Sodium 139 Potassium 5.9 H Chloride 108 H Carbon Dioxide 22 Anion Gap 14.9 BUN 52 H Creatinine 1.90 H Estimated Creat Clear 28 Estimated GFR 27 L Est GFR ( Amer) 32 L Glucose 70 L POC Glucose 67 L Hemoglobin A1c Calcium 8.8 Magnesium Total Bilirubin 0.2 AST 14 ALT 9 L Alkaline Phosphatase 74 C-Reactive Protein 19.1 H NT-Pro-B Natriuret Pep Total Protein 7.3 Albumin 3.8 Globulin 3.5 H Albumin/Globulin Ratio 1.1 Triglycerides Cholesterol LDL Cholesterol Direct VLDL Cholesterol HDL Cholesterol Cholesterol/HDL Ratio Procalcitonin 0.078 TSH Thyroxine (T4) Urine Color Urine Appearance Urine pH Ur Specific [place] Urine Protein Urine Glucose (UA) Urine Ketones Urine Blood Urine Nitrate Urine Bilirubin Urine Urobilinogen Ur Leukocyte Esterase Urine RBC Urine WBC Ur Squamous Epith Cells Urine Bacteria Stool Occult Blood SARS-CoV-2 (PCR) Influenza A Untype (PCR) Influenza Type B (PCR) Blood Type Blood Type Confirm Antibody Screen Crossmatch (AH) 11/16/21 11/16/21 11/16/21 03:25 03:25 03:25 WBC RBC Hgb Hct MCV MCH MCHC RDW Plt Count MPV Neut % (Auto) Lymph % (Auto) [place] % (Auto) Eos % (Auto) Baso % (Auto) Neut # (Auto) Lymph # (Auto) [place] # (Auto) Eos # (Auto) Baso # (Auto) Total Counted Neutrophils % (Manual) Lymphocytes % (Manual) Eosinophils % (Manual) Basophils % (Manual) Platelet Estimate RBC Morphology Hypochromasia Tear Drop Cells Acanthocytes (Spur) ESR Sodium Potassium Chloride Carbon Dioxide Anion Gap BUN Creatinine Estimated Creat Clear Estimated GFR Est GFR ( Amer) Glucose POC Glucose Hemoglobin A1c 5.0 Calcium Magnesium Total Bilirubin AST ALT Alkaline Phosphatase C-Reactive Protein NT-Pro-B Natriuret Pep 3640 H Total Protein Albumin Globulin Albumin/Globulin Ratio Triglycerides Cholesterol LDL Cholesterol Direct VLDL Cholesterol HDL Cholesterol Cholesterol/HDL Ratio Procalcitonin TSH 8.02 H Thyroxine (T4) 7.7 Urine Color Urine Appearance Urine pH Ur Specific [place] Urine Protein Urine Glucose (UA) Urine Ketones Urine Blood Urine Nitrate Urine Bilirubin Urine Urobilinogen Ur Leukocyte Esterase Urine RBC Urine WBC Ur Squamous Epith Cells Urine Bacteria Stool Occult Blood SARS-CoV-2 (PCR) Influenza A Untype (PCR) Influenza Type B (PCR) Blood Type Blood Type Confirm
--- NOTE | 2021-11-19 09:17 | HMH.PNCARD ---
Subjective Date: 11/19/21 Time: 09:17 Principal diagnosis: CHF, A. fib, GI bleed, Anemia Interval history: 66 yo WF at bedside with PT. No chest pains. Feeling better after the blood transfusion. Hgb up to 9.5. BUN/Cr improved with net output of 3 liters more than intake. Relates she has been off iron tablets for 6 months. Discussed with PCP regarding need for endoscopy to evaluate GI blood loss. Patient has seen Dr. Ferraro in past. Exam Vital signs and Labs for Last 24 Hours: Temp Pulse Resp BP Pulse Ox 98 F 85 26 H 137/53 L 98 11/19/21 07:48 11/19/21 07:48 11/19/21 07:48 11/19/21 07:48 11/19/21 07:48 Laboratory Results - last 24 hr 11/18/21 05:52: Blood Type Confirm O Positive 11/18/21 11:09: POC Glucose 187 H 11/18/21 13:00: Blood Type O Positive, Antibody Screen Negative, Crossmatch (AHG) See Detail 11/18/21 16:40: POC Glucose 184 H 11/18/21 22:21: POC Glucose 221 H 11/19/21 05:22: POC Glucose 164 H 11/19/21 06:00: WBC 6.7, RBC 3.47 L, Hgb 9.5 L, Hct 32.1 L, MCV 92.7, MCH 27.5, MCHC 29.7 L, RDW 17.1, Plt Count 301, MPV 7.8, Neut % (Auto) 74.3, Lymph % (Auto) 13.3, [place] % (Auto) 6.7, Eos % (Auto) 4.9, Baso % (Auto) 0.8, Neut # (Auto) 5.0, Lymph # (Auto) 0.9, [place] # (Auto) 0.5, Eos # (Auto) 0.3, Baso # (Auto) 0.1 11/19/21 06:00: Sodium 137, Potassium 4.9, Chloride 108 H, Carbon Dioxide 24, Anion Gap 9.9, BUN 33 H, Creatinine 1.30 H, Estimated Creat Clear 41, Estimated GFR 41 L, Est GFR ( Amer) 50 L, Glucose 145 H, Calcium 8.4 I & O for Last 24 hours: Intake & Output 11/16/21 11/17/21 11/18/21 11/19/21 11:59 11:59 11:59 11:59 Intake Total 1853 / 1853 360 / 360 930 / 930 Output Total 0 / 0 1800 / 1800 2100 / 2100 2500 / 2500 Balance 0 / 0 53 / 53 -1740 / -1740 -1570 / -1570 Weight 520 lb 4.655 oz 518 lb 1.381 oz 518 lb 1.381 oz 529 lb 5.278 oz Microbiology Reports for the Last 24 Hours: Microbiology 11/16/21 07:30 Knee,Right Gram Stain - Final 11/16/21 07:30 Knee,Right Wound Culture - Preliminary Gram Positive Cocci 11/16/21 06:45 Urine,Catheterized Urine Culture - Preliminary Gram Negative Rods - Constitutional no acute distress, morbidly obese - *Routine Respiratory Exam Present: CTA bilaterally - *Routine Cardiovascular Exam Present: RRR, irregularly irregular - *Routine Abdominal Exam Present: soft, normoactive bowel sounds, obese. Absent: tenderness - *Routine Extremities Exam Absent: cyanosis, clubbing, edema Progress Note: A&P (1) GEOVANNY (acute kidney injury) Status: Acute (2) Abscess or cellulitis of knee Status: Acute (3) Anemia Status: Acute (4) Congestive heart failure Status: Acute (5) Diabetes mellitus Status: Acute (6) Elevated erythrocyte sedimentation rate Status: Acute (7) Hyperkalemia Status: Acute (8) Hypoglycemia Status: Acute (9) Immobility Status: Acute (10) UTI (urinary tract infection) Status: Acute (11) Hyperlipemia Status: Chronic (12) Hypertension Status: Chronic (13) Morbid obesity Status: Chronic (14) Elevated d-dimer Status: Acute Assessment and Plan for All Diagnoses:: 1. Acute on chronic diastolic CHF exacerbation due to anemia/GI bleed and medication non-compliance. REsume home dose of lasix 40 mg daily. 2. A. fib, chronic. Resume Xarelto 15 mg daily based on renal functions. 3. Morbid obesity which complicates all aspects of care. 4. DM, per PCP. 5. GI bleed, s/p post 2 units of blood transfused, defer workup to PCP. SILVERIO from Cardiology standpoint for outpatient endoscopy and holding Xarelto 2 days prior to procedure. Follow up in our office in 2-3 wks. Home meds: metoprolol tartrate 25 mg BID Diltiazem 360 mg and 120 mg daily Potassium 20 mill equivalents daily Furosemide 40 mg daily Pravastatin 40 mg daily Reduce aspirin to 81 mg daily Reduce Xarelto to 15 mg daily Reduce lisinopr
--- NOTE | 2021-11-19 09:32 | HMH.PHAINT ---
DISCHARGE COUNSELING COMPLETED. PT VERBALIZED UNDERSTANDING WHEN DIRECTED TO HOLD ALL ANTI-DIABETIC MEDICATIONS AND DOSE CHANGE WITH XARELTO. EXPRESSED CONCERN ABOUT ANTI-DIABETIC MEDICATIONS. ENCOURAGED PT TO SPEAK TO PRIMARY CARE PHYSICIAN AT FOLLOWUP VISIT. COMMUNICATED PTS CONCERNS WITH JAMES JUÁREZ
--- NOTE | 2021-11-19 09:51 | HMH.OTEV ---
OT Inpatient Evaluation Rehab OT IP Evaluation Start: 11/18/21 09:14 Freq: ONCE Status: Complete Protocol: Document 11/19/21 09:43 [facility] (Rec: 11/19/21 09:51 [facility] [id number]) Rehab OT IP Assessment Subjective History Pt oriented x 3 on arrival. Pt agreeable to engage in therapy evaluation this morning. Pt polite and cooperative. Pt was admitted via ED on 11/16/21. The following information was copied from her history and physical report: this patient presented [facility] ed via [facility]-pt was confused this am and found by ems to have dec glu - pt is diabetic and last took metformin last pm - no vomiting and no diarrhea - no cough - pt with reddness tender rt post knee - pt with no fever - pt admitted with acute eryn and persistent hypoglycemia Pt has a past medical history of Asthma, Atrial Fibrillation , Congestive Heart Failure, Diabetes Mellitus Type 2, Hyperlipidemia, Hypertension. Pt reports prior to being in the hospital pt lived with her daughter and other family members. Pt report up until September, she was able to transfer herself with a walker independently. Since September she has required assistance with transfers. Pt requires assistance with dressing and bathing. Pt is able to feed herself. Pt is dependent upon family members for completion of all IADLS. Subjective Pt resting in bed on arrival. Pt agreeable to engage in therapy session. Pt went from supine to sitting at eob with mod assist x 2. Pt sat at eob with good static sitting
--- NOTE | 2021-11-19 10:01 | HMH.PTEV ---
Physical Therapy Evaluation Rehab PT IP Evaluation Start: 11/18/21 09:13 Freq: ONCE Status: Active Protocol: Document 11/19/21 09:57 MIKE (Rec: 11/19/21 10:01 PHOTREVER [id number]) Subjective/History History History 66 yowf adm to [facility] with GEOVANNY and GIB. She reports she lives with family in a mobile home with 6-8 steps to enter the home. Generally she requires assist of 1 person and SW for ambulation inside her home. Subjective Subjective Pt reports this am she feels tired, but a little better than she did yesterday. Rehab PT IP Eval Objective Appearance Patient Behavior Appropriate Patient Orientation Person,Place,Time Difficulty following instructions none Speech Pattern Clear Ambulation Patient Able to Ambulate No Balance Ability to Arise Able, uses arms to help Sitting Balance Leans or slides in chair Standing Balance Steady, wide stance Dynamic Sitting Balance Ability Fair Dynamic Standing Balance Ability Fair Transfers Bed Transfer Ability Maximum x 2 (75% assist) Chair Transfer Ability Moderate x 2 (50% assist) Sit to Stand Bed Transfer Ability Moderate x 1 (50% assist) Rehab PT IP prob,goals,plan Problems Date of Evaluation: 11/19/21 PT IP Problems Bed Mobility,Transfers Rehab Potential Rehab Potential Fair Plan PT Intervention Plan Bed Mobility,Transfers, Therapeutic Exercise PT Plan Frequency BID Duration LOS Discharge Goals Bed Transfer Ability Maximum x 1 (75% assist) Sit to Stand Chair Transfer Ability Moderate x 1 (50% assist) Discharge Plan PT Discharge Plan Pt is currently most appropriate for rehab placement once medically stable. If she is to return home she will require 24 hr assist by family. G -code Required No Eval Complexity Eval Charge Codes 27319 - Moderate Complexity PHYSICIAN CERTIFICATION: I certify the specified therapy services for Judy Jung are required, authorized, and reviewed every 30 days.
--- NOTE | 2021-11-19 11:45 | HMH.GSCON ---
*Admission Date: 11/16/21 *Reason for consult:: Anemia *History of present illness: This is a 66-year-old female seen in consultation from her primary care provider and the cardiology service for possible endoscopic evaluation of anemia. She presented with confusion/weakness. Evaluation revealed anemia. She reports no bright red blood per rectum or melena. No hematemesis. She has been deemed appropriate by her primary service for discharge with close outpatient follow-up after receiving a 2 unit packed red blood cell transfusion. They have asked for endoscopic evaluation with regard to possible gastroenterologic source. Forwarded from admission H&P: this patient presented to the [facility] ed via [employer] [facility]-pt was confused this am and found by ems to have dec glu - pt is diabetic and last took metformin last pm - no vomiting and no diarrhea - no cough - pt with reddness tender rt post knee - pt with no fever - pt admitted with acute eryn and persistent hypoglycemia Review of Systems - *Gastrointestinal Denies abdominal pain, Denies vomiting blood, Denies black, tarry stools - *Neurologic Reports weakness, Denies localized weakness, Denies headache(s), Denies seizure-like activity [facility] History Medical History: Reports:: Asthma, Atrial Fibrillation, Congestive Heart Failure, Diabetes Mellitus Type 2, Hyperlipidemia, Hypertension Denies:: Chronic Obstructive Pulmonary Disease (COPD) *Have you ever received a pneumonia vaccine?: No *Have you received a flu vaccine this season?: No Other Medical History: Reports: Anemia, Arthritis, Hypothyroidism, Sinus Problems, Thyroid Disease, Other (Morbid Obesity, History of Lung infection with intubation, PSVT) Other Surgeries: Yes: , Dilation and Curettage, Thyroidectomy, Other (Right lung surgery) - *Social History Smoking Status: Never smoker Alcohol Intake: never *Occupational Status:: disabled Household Members: children *Travel in the last 8 weeks: None Family Hx:: Cancer, Diabetes, Heart Attack, Kidney Disease, Thyroid Disorder Meds Home Medications Medication Instructions Recorded Confirmed Type ALPRAZolam [Alprazolam 0.25mg 0.25 mg PO TIDP PRN 09/16/21 11/16/21 History Tab] Acetaminophen [Tylenol 325mg 325 mg PO HS 09/16/21 11/16/21 History Tablet] Famotidine [Acid Controller] 20 mg PO DAILY 09/16/21 11/16/21 History Gabapentin [Gabapentin 100mg Cap] 100 mg PO HS 09/16/21 11/16/21 History Hydrocodone/Acetaminophen 1 each PO Q6HP PRN 09/16/21 11/16/21 History [Hydrocodone-Acetamin 7.5-325] Ipratropium/Albuterol Sulfate 3 ml IH Q6 PRN 09/16/21 11/16/21 History [Duoneb 3mL neb] Levothyroxine Sodium 125 mcg PO DAILY 09/16/21 11/16/21 History [Levothyroxine 125mcg (0.125mg) Tab] Potassium Chloride [Klor-Con M20] 20 meq PO DAILY 09/16/21 11/16/21 History Pravastatin Sodium [Pravachol 40mg 40 mg PO HS 09/16/21 11/16/21 History Tablet] Sennosides/Docusate Sodium 1 each PO HS PRN 09/16/21 11/16/21 History [Docusate Sodium-Senna Tablet] Triamcinolone Aceton/Silicones 1 each TP TIDP PRN 09/16/21 11/16/21 History [Silalite 0.1% Devyn] dilTIAZem HCL [Diltiazem 360mg 360 mg PO DAILY 09/16/21 11/16/21 History 24Hr ER Cap] diphenhydrAMINE HCL [Benadryl] 25 mg PO HSP PRN 09/16/21 11/16/21 History Ferrous Sulfate [Ferosul] 325 mg PO BID 09/17/21 11/16/21 History dilTIAZem HCL [Diltiazem 120mg 120 mg PO DAILY 09/17/21 11/16/21 History 12Hr ER Cap] Furosemide [Lasix 40mg tablet] 40 mg PO DAILY 11/16/21 11/16/21 History Metoprolol Tartrate [Lopressor 25 mg PO BID 11/16/21 11/16/21 History 25mg tablet] Aspirin 81 mg PO DAILY 30 Days #30 tab 11/19/21 Rx Cefdinir [Omnicef 300mg Capsule] 300 mg PO BID #20 cap 11/19/21 Rx Rivaroxaban [Xarelto 15mg tablet] 15 mg PO QPMWITHMEAL 30 Days #30 11/19/21 Rx tab lisino
== END 2021-11-19 15:06 | disposition home health service (06) ==
LOC: ER 06:59 → 2ND 07:56
PROVIDERS: Nurse Practitioner Family; Physician Assistant; Admitting Provider Emergency Medicine; Emergency Provider Emergency Medicine; PCP Internal Medicine; Visit Provider Family Medicine
DX: I13.0 Hypertensive heart and chronic kidney disease with heart failure and stage 1 through stage 4 chronic kidney disease, or unspecified chronic kidney disease (principal); N17.9 Acute kidney failure, unspecified; I50.33 Acute on chronic diastolic (congestive) heart failure; I48.91 Unspecified atrial fibrillation; E66.01 Morbid (severe) obesity due to excess calories; Z68.45 Body mass index [BMI] 70 or greater, adult; N39.0 Urinary tract infection, site not specified; E11.22 Type 2 diabetes mellitus with diabetic chronic kidney disease; Z79.01 Long term (current) use of anticoagulants; Z79.84 Long term (current) use of oral hypoglycemic drugs; Z20.822 Contact with and (suspected) exposure to COVID-19; E03.9 Hypothyroidism, unspecified; Z79.899 Other long term (current) drug therapy; N18.4 Chronic kidney disease, stage 4 (severe); L03.115 Cellulitis of right lower limb
CPT/HCPCS: 36430; G0378; 36415; 71045; 80048; 80053; 80061; 81001; 82272; 82962; 83036; 83735; 83880; 84145; 84436; 84443; 85007; 85025; 85651; 86140; 86850; 87070; 87077; 87086; 87088; 87186; 87205; 93005; 93308; 94640; 94760; 94761; 96365; 96366; 96375; 97162; 97166; 99284; C9803; G0328; J0696; J2405; J7060; P9016; U0003; U0005

== ENCOUNTER 2021-11-22 19:54 | Observation (INO) | payer MEDICARE, SELFPAY ==
[2021-11-22 19:49] VITALS: BP 148/88; PULSE 105; RESP 22; TEMP 36.5; O2SAT 99; BMI 100.4
--- NOTE | 2021-11-22 20:52 | HMH.EDWEAK ---
ED Disposition Clinical Impression: Weakness, Morbid obesity, UTI due to Klebsiella species, Infection, Proteus Type 2 diabetes mellitus Qualifiers: Diabetes mellitus residential insulin use: unspecified intermediate manager insulin use status Diabetes mellitus complication status: with other specified complication Qualified Code(s): E11.69 - Type 2 diabetes mellitus with other specified complication Disposition: Admitted as Observation Condition on Discharge: Good Referrals: Blaze Hebert [Primary Care Provider] - - Critical Care Critical Care Time: No Attestation: On 11/22/21, the high probability of a clinically significant, sudden or life threatening deterioration of the following system(s) required my full and direct attention, intervention and personal management. The time I documented below is in addition to time spent performing reported procedures but includes the following listed in this critical care notation. Medical Decision Making - Medical Records Medical records reviewed: Yes: I reviewed the patient's medical records. - [place] Inquiry Pt receiving controlled substance: No Vital Signs: 11/22/21 19:49 Temperature 97.7 F Temperature Source Oral Pulse Rate [Right] 105 H Respiratory Rate 22 Blood Pressure [Right Arm] 148/88 H Blood Pressure Mean [Right Arm] 108 Blood Pressure Source [Right Arm] Automatic Cuff 02 Sat by Pulse Oximetry 99 Oxygen Delivery Method Nasal Cannula Oxygen Flow Rate (LPM) 3.5 - Lab Data Lab results reviewed: Yes: I reviewed the patient's lab results. Medical Decision Narrative: weakness and unable to do iadl and adl Weakness HPI - General Chief complaint: Weakness Stated complaint: care management Time Seen by Provider: 11/22/21 20:20 Mode of Arrival: EMS Source of Information: Patient, EMS, Medical Record Limitations: Physical Limitations Description of Symptoms (Recalled from ER Triage Doc. by RN): Pt c/o not being able to take care of myself and my family can't either . Pt was adx here last week 11/16-11/19 for UTI, GEOVANNY & Cellulitis of R knee. Pt states she was supposed to be set up with home health and PT but d/t the weather they weren't able to come out and my daughter couldn't do it by herself any longer . Pt denies any cough, fever, chills, or new sob. Pt reports that she has chf and wears 3.5L home O2 all the time. - History of Present Illness HPI Narrative: recent admit with uti and hypoglycemia - returns with weakness and diffuse itching MD Complaint: generalized weakness Onset (ago): day(s) Location: generalized Migration: none Associated symptoms: denies other symptoms - Related Data Home Medications Medication Instructions Recorded Confirmed ALPRAZolam [Alprazolam 0.25mg 0.25 mg PO TIDP PRN 09/16/21 11/16/21 Tab] Acetaminophen [Tylenol 325mg 325 mg PO HS 09/16/21 11/16/21 Tablet] Famotidine [Acid Controller] 20 mg PO DAILY 09/16/21 11/16/21 Gabapentin [Gabapentin 100mg Cap] 100 mg PO HS 09/16/21 11/16/21 Hydrocodone/Acetaminophen 1 each PO Q6HP PRN 09/16/21 11/16/21 [Hydrocodone-Acetamin 7.5-325] Ipratropium/Albuterol Sulfate 3 ml IH Q6 PRN 09/16/21 11/16/21 [Duoneb 3mL neb] Levothyroxine Sodium 125 mcg PO DAILY 09/16/21 11/16/21 [Levothyroxine 125mcg (0.125mg) Tab] Potassium Chloride [Klor-Con M20] 20 meq PO DAILY 09/16/21 11/16/21 Pravastatin Sodium [Pravachol 40mg 40 mg PO HS 09/16/21 11/16/21 Tablet] Sennosides/Docusate Sodium 1 each PO HS PRN 09/16/21 11/16/21 [Docusate Sodium-Senna Tablet] Triamcinolone Aceton/Silicones 1 each TP TIDP PRN 09/16/21 11/16/21 [Silalite 0.1% Devyn] dilTIAZem HCL [Diltiazem 360mg 360 mg PO DAILY 09/16/21 11/16/21 24Hr ER Cap] diphenhydrAMINE HCL [Benadryl] 25 mg PO HSP PRN 09/16/21 11/16/21 Ferrous Sulfate [Ferosul] 325 mg PO BID 09/17/21 11/16/21 dilTIAZem HCL [Diltiazem 120mg 120 mg PO DAILY 09/17/21 11/16/21 12Hr ER Cap] Furosemide [Lasix 40mg tablet] 40 mg PO DA
[2021-11-22 21:01] VITALS: BP 148/86; PULSE 100; O2SAT 98
[2021-11-22 21:12] LABS: Coronavirus 19, PCR Not Detected (NotDetected); Influenza A, PCR Not Detected (NotDetected); Influenza B, PCR Not Detected (NotDetected)
[2021-11-22 21:17] LABS: Basophils # 0.1 K/mm3 (0-0.2); Basophils % 0.8 % (0.1-2.0); Eosinophils # 0.4 K/mm3 (0.0-0.4); Eosinophils % 6.3 % (0.1-12.0); Hematocrit 37.8 % (37.0-47.0); Hemoglobin 11.3 g/dL (12.2-16.2); Lymphocytes # 0.7 K/mm3 (0.7-4.5); Lymphocytes % 12.3 % (10-50); Mean Corpuscular HGB Conc 29.8 g/dL (31.8-35.4); Mean Corpuscular Hemoglobin 27.4 pg (27.0-31.2); Mean Corpuscular Volume 91.8 fl (81-99); Mean Platelet Volume 7.7 fl (7.4-10.4); Monocytes # 0.4 K/mm3 (0.1-1.0); Monocytes % 6.7 % (1.7-9.3); Neutrophils # 4.3 K/mm3 (1.8-7.8); Neutrophils % 73.8 % (37.0-80.0); Platelet Count 316 K/mm3 (142-424); Red Blood Count 4.11 M/mm3 (4.20-5.40); Red Cell Distribution Width 17.2 % (11.5-17.5); White Blood Count 5.8 K/mm3 (4.8-10.8)
[2021-11-22 21:19] VITALS: BMI 82.2
[2021-11-22 21:30] VITALS: BP 150/98; PULSE 104; O2SAT 97
[2021-11-22 21:31] LABS: Alanine Aminotransferase 11 U/L (12-78); Albumin Level 3.3 g/dl (3.5-5.0); Alkaline Phosphatase 65 U/L (38-126); Anion Gap 8.7 mEq/L (5-15); Aspartate Amino Transferase 17 U/L (14-36); Bilirubin,Total 0.3 mg/dl (0.2-1.3); Blood Urea Nitrogen 14 mg/dl (7-17); Calcium 8.8 mg/dl (8.4-10.2); Carbon Dioxide 29 mmol/L (22.0-30.0); Chloride 103 mmol/L (98-107); Creatinine Clearance Estimated 49 mL/min (50-200); Estimated Glomerular Filt Rate 63 ml/min (>60); GFR (African American) 76 ML/MIN (>60); Globulin 3.4 g/dL (1.3-3.2); Glucose 110 mg/dl (74-100); Potassium 3.7 mmoL/L (3.5-5.1); Sodium 137 mmol/L (136-145); Total Protein,Serum 6.7 g/dl (6.3-8.2)
--- NOTE | 2021-11-22 22:16 | PC.NURSE ---
Report called to JAMES Becerra by Ermelinda Galarza RN.
[2021-11-22 22:49] VITALS: BP 160/97; PULSE 100; RESP 18; TEMP 36.5; O2SAT 97
[2021-11-23] VITALS: BP 128/66; PULSE 105; RESP 22; TEMP 36.7; O2SAT 100
--- NOTE | 2021-11-23 01:44 | PC.NURSE ---
During admission questions patient was asked about suicidal thoughts, patient stated she has had thoughts in the past. Pt has never acted on the thoughts or created a plan. Patient verbally agreed to let us know if she has any of those thoughts during this admission.
[2021-11-23 02:31] VITALS: O2SAT 98
--- NOTE | 2021-11-23 07:24 | P.CONPHA_ITS ---
[facility] Pharmacy VTE Monitoring - Patient Demographics Admission date: 11/22/21 Report Date: 11/23/21 Time: 07:24 Allergies/Adverse Reactions: Patient Allergies propofol [From Diprivan] Adverse Reaction (Intermediate, Verified 06/17/20 10:02) HALLUCINATIONS Height: 1.65 m Weight: 223.8 kg Patient Problems: Current Active Problems Morbid obesity (Chronic) Type 2 diabetes mellitus (Chronic) Weakness (Acute) UTI due to Klebsiella species (Acute) Infection, Proteus (Acute) - VTE Risk Labs: VTE Related Lab Results Hgb 11.3 g/dL (12.2-16.2) L 11/22/21 21:00 Hct 37.8 % (37.0-47.0) 11/22/21 21:00 Plt Count 316 K/mm3 (142-424) 11/22/21 21:00 BUN 14 mg/dl (7-17) 11/22/21 21:00 Creatinine 0.90 mg/dl (0.52-1.04) 11/22/21 21:00 Estimated Creat Clear 49 mL/min (50-200) 11/22/21 21:00 Was VTE Risk Assessment Performed: No VTE Score: 4 VTE Risk Level: Low Risk - Prophylaxis VTE Prophylaxis Ordered?: Yes Types of VTE Prophylaxis: TEDS Knee High, Pharmacological Location of Applied Device: Bilateral Lower Extremeties Pharmacologic Type: Other (XARELTO)
--- NOTE | 2021-11-23 07:56 | HMH.PHAINT ---
verified home medications from previous discharge summary
[2021-11-23 08:00] VITALS: BP 119/89; PULSE 114; RESP 25; TEMP 36.6; O2SAT 100; O2SAT 98
--- NOTE | 2021-11-23 08:31 | HMH.HP ---
*Admission Date: 11/22/21 *Chief complaint: Weakness *History of present illness: 66-year-old female patient presented to the [facility] emergency department with reports of I cannot take care of myself and my family can either . Patient was discharged from [facility] 11/19/2021 for UTI, GEOVANNY, and cellulitis of right knee. She reports taking her antibiotics upon discharge per schedule. She also reports PT and home health was post to be set up but were unable to make it out due to weather. She reports that she and her daughter were trying to do her care on discharge and over the weekend, became very emotional and both were crying. She denies fever/chills/body aches, nausea/vomiting/diarrhea, and has taste and smell. BUN and creatinine has improved 14/0.9 H&H stable 11.3/37.8 66-year-old female patient resting in bed quietly, son in room in chair. Current oxygenation 100% on 4 L per nasal cannula. Discussed patient's current condition and need for rehab facility, patient is agreement with this as long as it is relatively local. Case management involved seeking to find placement for patient.She was discharged on Omnicef and has been stopped today due to her reports of itching [facility] History I have reviewed the patient's past medical history: Yes Medical History: Reports:: Asthma, Atrial Fibrillation, Congestive Heart Failure, Diabetes Mellitus Type 2, Hyperlipidemia, Hypertension, MRSA Denies:: Cancer, Chronic Obstructive Pulmonary Disease (COPD) *Have you ever received a pneumonia vaccine?: No *Have you received a flu vaccine this season?: No Other Medical History: Reports: Anemia, Arthritis, Hypothyroidism, Sinus Problems, Thyroid Disease, Other (Morbid Obesity, History of Lung infection with intubation, PSVT) Other Surgeries: Yes: , Dilation and Curettage, Thyroidectomy, Other (Right lung surgery) Amputation: No Fractures: No - *Social History Smoking Status: Never smoker Alcohol Intake: never *Occupational Status:: disabled Housing: house Household Members: children *Travel in the last 8 weeks: None Family Hx:: No significant family history Review of Systems - Review of Systems Review of systems:: pertinent systems reviewed and negative unless documented below - Constitutional Reports fatigue, Reports weakness - Eyes Denies change in vision, Denies double vision - ENT Denies facial pain - *Cardiovascular Denies chest pain, Denies chest pain at rest, Denies shortness of breath - *Respiratory Denies chest congestion, Denies cough, Denies shortness of breath - *Gastrointestinal Denies abdominal pain, Denies change in stools - *Musculoskeletal Reports abnormal walking, Reports muscle weakness, Denies joint pain - *Neurologic Reports weakness - Psychiatric Denies anxiety, Denies behavioral changes - Endocrine Denies cold intolerance, Denies excessive sweating - Hematologic/Lymphatic Denies easy bleeding, Denies easy bruising - Allergic/Immunologic Denies GI upset with certain foods, Denies hives Meds Home Medications Medication Instructions Recorded Confirmed Type ALPRAZolam [Alprazolam 0.25mg 0.25 mg PO TIDP PRN 09/16/21 11/22/21 History Tab] Acetaminophen [Tylenol 325mg 325 mg PO HS 09/16/21 11/22/21 History Tablet] Famotidine [Acid Controller] 20 mg PO DAILY 09/16/21 11/22/21 History Gabapentin [Gabapentin 100mg Cap] 100 mg PO HS 09/16/21 11/22/21 History Hydrocodone/Acetaminophen 1 each PO Q6HP PRN 09/16/21 11/22/21 History [Hydrocodone-Acetamin 7.5-325] Ipratropium/Albuterol Sulfate 3 ml IH Q6 PRN 09/16/21 11/22/21 History [Duoneb 3mL neb] Levothyroxine Sodium 125 mcg PO DAILY 09/16/21 11/22/21 History [Levothyroxine 125mcg (0.125mg) Tab] Potassium Chloride [Klor-Con M20] 20 meq PO DAILY 09/16/21 11/22/21 History Pravastatin Sodium [Pravachol 40mg 40 mg PO HS 09/16/21 11/22/21 History Tablet]
--- NOTE | 2021-11-23 11:17 | HMH.PTEV ---
Physical Therapy Evaluation Rehab PT IP Evaluation Start: 11/23/21 09:23 Freq: ONCE Status: Active Protocol: Document 11/23/21 11:08 MIKE (Rec: 11/23/21 11:16 PHOTREVER [id number]) Subjective/History History History 66 yowf adm to [facility] with inability to care for herself at home. She reports she lives with family, 6-8 steps to enter the home and she has been unable to walk with her walker for severeal weeks. Subjective Subjective Pt reports itching all over, but mostly on by back and in my skin folds. Rehab PT IP Eval Objective Appearance Patient Behavior Appropriate Patient Orientation Person,Place,Time Difficulty following instructions none Speech Pattern Clear Ambulation Patient Able to Ambulate No Balance Ability to Arise Able, uses arms to help Transfers Bed Transfer Ability Moderate x 2 (50% assist) Rehab PT IP prob,goals,plan Problems Date of Evaluation: 11/23/21 PT IP Problems Bed Mobility,Transfers Rehab Potential Rehab Potential Good Plan PT Intervention Plan Bed Mobility,Transfers,Self care,Therapeutic Exercise PT Plan Frequency BID Duration LOS Discharge Goals Bed Transfer Ability Moderate x 1 (50% assist) Sit to Stand Chair Transfer Ability Maximum x 2 (75% assist) Discharge Plan PT Discharge Plan Pt is most appropriat for rehab placement one medically stable. If she returns home she will be at very high risk for further injury or . G -code Required No Eval Complexity Eval Charge Codes 25856 - Moderate Complexity PHYSICIAN CERTIFICATION: I certify the specified therapy services for Judy Jung are required, authorized, and reviewed every 30 days.
--- NOTE | 2021-11-23 11:18 | HMH.OTEV ---
OT Inpatient Evaluation Rehab OT IP Evaluation Start: 11/23/21 09:23 Freq: ONCE Status: Complete Protocol: Document 11/23/21 11:03 CELINA (Rec: 11/23/21 11:13 [facility] [id number]) Rehab OT IP Assessment Subjective History Pt oriented x 3 on arrival. Pt agreeable to engage in therapy evaluation. Pt was admitted via ED on 11/22/21 due to weakness. Pt was seen by therapy last week while she was in hospital for UTI. The following information was copied from PCP's history and physical report: 66-year-old female patient presented to the [facility] emergency department with reports of I cannot take care of myself and my family can either . Patient was discharged from [facility] for UTI, GEOVANNY, and cellulitis of right knee. She reports taking her antibiotics upon discharge per schedule. She also reports PT and home health was post to be set up but were unable to make it out due to weather. She reports that she and her daughter were trying to do her care on discharge and over the weekend, became very emotional and both were crying . She denies fever/chills/ body aches, nausea/vomiting/ diarrhea, and has taste and smell. BUN and creatinine has improved 14/0.9 H&H stable 11.3/37.8 66-year-old female patient resting in bed quietly, son in room in chair. Current oxygenation 100% on 4 L per nasal cannula. Discussed patient's current condition and need for rehab facility, patient is agreement with this as lo
[2021-11-23 11:49] LABS: POC Glucose,Bedside 98 (70-110)
[2021-11-23 14:15] VITALS: BMI 82.2
[2021-11-23 15:52] VITALS: BP 156/81; PULSE 79; RESP 20; TEMP 37; O2SAT 100
--- NOTE | 2021-11-23 19:30 | PC.NURSE ---
SHE IS AOX4, ABLE TO MAKE NEEDS KNOWN TO STAFF, SHE HAS CONTINUED ON 3.5 LNC. CARE MANAGEMENT CONSULT OTDAY. PT SEEMED AGREEABLE TO PLACEMENT FOR REHABILITATION.
[2021-11-23 20:00] VITALS: BP 145/87; PULSE 108; RESP 20; TEMP 36.9; O2SAT 98
[2021-11-23 20:34] LABS: POC Glucose,Bedside 120 (70-110)
[2021-11-23 20:34] LABS: POC Glucose,Bedside 137 (70-110)
[2021-11-23 22:46] LABS: POC Glucose,Bedside 127 (70-110)
[2021-11-24 04:00] VITALS: BP 132/79; PULSE 68; RESP 20; TEMP 36.7; O2SAT 98
[2021-11-24 05:29] LABS: POC Glucose,Bedside 108 (70-110)
[2021-11-24 05:47] VITALS: BMI 81.9
[2021-11-24 07:20] LABS: Anion Gap 9.2 mEq/L (5-15); Blood Urea Nitrogen 13 mg/dl (7-17); Calcium 8.3 mg/dl (8.4-10.2); Carbon Dioxide 28 mmol/L (22.0-30.0); Chloride 102 mmol/L (98-107); Creatinine Clearance Estimated 49 mL/min (50-200); Estimated Glomerular Filt Rate 72 ml/min (>60); GFR (African American) 87 ML/MIN (>60); Glucose 114 mg/dl (74-100); Potassium 4.2 mmoL/L (3.5-5.1); Sodium 135 mmol/L (136-145)
--- NOTE | 2021-11-24 07:27 | SW/DCPLANNER ---
Addendum entered by Jasmyn Joy 11/24/21 10:21: PATIENT WILL DISCHARGE AFTER LUNCH TODAY..[facility] .. Original Note: PATIENT STATED DURING ROUNDS YESTERDAY SHE COULD NOT RETURN HOME AT THIS TIME, STATING HER DAUGHTER IS NOT ABLE TO CARE FOR HER AND SHE NEEDS REHAB FOR SHORT TERM.. PT/OT EVALS DID AGREE SHE DOES NEED REHAB.. I MADE SOME CONTACTS AND [facility] ACCEPTED PATIENT AND IS PREPARING FOR HER TO COME TODAY.. THEY ARE GOING TO SEEK OUT A BARIATRIC BED AND STATED THEY SHOULD HAVE ONE BY [place] TODAY AND CAN TAKE HER AFTER THAT LONG SHE IS MEDICALLY READY TO DISCHARGE.. A COVID SWAB HAS BEEN ORDERED..
[2021-11-24 07:34] VITALS: BP 130/62; PULSE 88; RESP 18; TEMP 36.6; O2SAT 98
[2021-11-24 07:35] VITALS: O2SAT 97
[2021-11-24 08:29] LABS: Coronavirus 19, PCR Not Detected (NotDetected); Influenza A, PCR Not Detected (NotDetected); Influenza B, PCR Not Detected (NotDetected)
[2021-11-24 08:34] LABS: Basophils % 0.5 % (0.1-2.0); Eosinophils # 0.5 K/mm3 (0.0-0.4); Hematocrit 36.4 % (37.0-47.0); Hemoglobin 10.9 g/dL (12.2-16.2); Lymphocytes # 0.9 K/mm3 (0.7-4.5); Lymphocytes % 14.6 % (10-50); Mean Corpuscular Hemoglobin 27.8 pg (27.0-31.2); Mean Corpuscular Volume 92.9 fl (81-99); Mean Platelet Volume 9.1 fl (7.4-10.4); Monocytes # 0.5 K/mm3 (0.1-1.0); Monocytes % 8.3 % (1.7-9.3); Neutrophils % 67.8 % (37.0-80.0); Platelet Count 295 K/mm3 (142-424); Red Blood Count 3.91 M/mm3 (4.20-5.40); Red Cell Distribution Width 16.8 % (11.5-17.5); White Blood Count 5.8 K/mm3 (4.8-10.8)
--- NOTE | 2021-11-24 09:44 | [facility].DCSUM ---
General - General Admission date:: 11/22/21 Discharge date: 11/24/21 HPI HPI: 66-year-old female patient presented to the [facility] emergency department with reports of I cannot take care of myself and my family can either . Patient was discharged from [facility] 11/19/2021 for UTI, GEOVANNY, and cellulitis of right knee. She reports taking her antibiotics upon discharge per schedule. She also reports PT and home health was post to be set up but were unable to make it out due to weather. She reports that she and her daughter were trying to do her care on discharge and over the weekend, became very emotional and both were crying. She denies fever/chills/body aches, nausea/vomiting/diarrhea, and has taste and smell. BUN and creatinine has improved 14/0.9 H&H stable 11.3/37.8 66-year-old female patient resting in bed quietly, son in room in chair. Current oxygenation 100% on 4 L per nasal cannula. Discussed patient's current condition and need for rehab facility, patient is agreement with this as long as it is relatively local. Case management involved seeking to find placement for patient.She was discharged on [facility] and has been stopped today due to her reports of itching Hospital Course Hospital Course: Laboratory Tests 11/22/21 11/22/21 11/22/21 21:00 21:00 21:00 WBC 5.8 RBC 4.11 L Hgb 11.3 L Hct 37.8 MCV 91.8 MCH 27.4 MCHC 29.8 L RDW 17.2 Plt Count 316 MPV 7.7 Neut % (Auto) 73.8 Lymph % (Auto) 12.3 Upton % (Auto) 6.7 Eos % (Auto) 6.3 Baso % (Auto) 0.8 Neut # (Auto) 4.3 Lymph # (Auto) 0.7 [place]pton # (Auto) 0.4 Eos # (Auto) 0.4 Baso # (Auto) 0.1 Sodium 137 Potassium 3.7 Chloride 103 Carbon Dioxide 29 Anion Gap 8.7 BUN 14 Creatinine 0.90 Estimated Creat Clear 49 Estimated GFR 63 Est GFR ( Amer) 76 Glucose 110 H POC Glucose Calcium 8.8 Total Bilirubin 0.3 AST 17 ALT 11 L Alkaline Phosphatase 65 Total Protein 6.7 Albumin 3.3 L Globulin 3.4 H Albumin/Globulin Ratio 1.0 L SARS-CoV-2 (PCR) Not detected Influenza A Untype (PCR) Not detected Influenza Type B (PCR) Not detected 11/23/21 11/23/21 11/23/21 06:10 11:31 16:21 WBC RBC Hgb Hct MCV MCH MCHC RDW Plt Count MPV Neut % (Auto) Lymph % (Auto) Upton % (Auto) Eos % (Auto) Baso % (Auto) Neut # (Auto) Lymph # (Auto) Upton # (Auto) Eos # (Auto) Baso # (Auto) Sodium Potassium Chloride Carbon Dioxide Anion Gap BUN Creatinine Estimated Creat Clear Estimated GFR Est GFR ( Amer) Glucose POC Glucose 98 120 H 137 H Calcium Total Bilirubin AST ALT Alkaline Phosphatase Total Protein Albumin Globulin Albumin/Globulin Ratio SARS-CoV-2 (PCR) Influenza A Untype (PCR) Influenza Type B (PCR) 11/23/21 11/24/21 11/24/21 22:32 05:22 06:57 WBC 5.8 RBC 3.91 L Hgb 10.9 L Hct 36.4 L MCV 92.9 MCH 27.8 MCHC 30.0 L RDW 16.8 Plt Count 295 MPV 9.1 Neut % (Auto) 67.8 Lymph % (Auto) 14.6 Upton % (Auto) 8.3 Eos % (Auto) 9.0 Baso % (Auto) 0.5 Neut # (Auto) 4.0 Lymph # (Auto) 0.9 Upton # (Auto) 0.5 Eos # (Auto) 0.5 H Baso # (Auto) 0.0 Sodium Potassium Chloride Carbon Dioxide Anion Gap BUN Creatinine Estimated Creat Clear Estimated GFR Est GFR ( Amer) Glucose POC Glucose 127 H 108 Calcium Total Bilirubin AST ALT Alkaline Phosphatase Total Protein Albumin Globulin Albumin/Globulin Ratio SARS-CoV-2 (PCR) Influenza A Untype (PCR) Influenza Type B (PCR) 11/24/21 11/24/21 06:57 08:18 WBC RBC Hgb Hct MCV MCH MCHC RDW Plt Count MPV
== END 2021-11-24 16:32 ==
LOC: ER 20:59 → 2ND 23:05
PROVIDERS: Nurse Practitioner Family; Admitting Provider Emergency Medicine; Emergency Provider Emergency Medicine; PCP Internal Medicine; Visit Provider Emergency Medicine
DX: R53.1 Weakness (principal); Z74.2 Need for assistance at home and no other household member able to render care; E11.9 Type 2 diabetes mellitus without complications; E66.01 Morbid (severe) obesity due to excess calories; Z68.45 Body mass index [BMI] 70 or greater, adult; Z79.01 Long term (current) use of anticoagulants; Z79.84 Long term (current) use of oral hypoglycemic drugs; Z79.899 Other long term (current) drug therapy; E03.9 Hypothyroidism, unspecified; I50.9 Heart failure, unspecified; I48.91 Unspecified atrial fibrillation; I12.9 Hypertensive chronic kidney disease with stage 1 through stage 4 chronic kidney disease, or unspecified chronic kidney disease; Z20.822 Contact with and (suspected) exposure to COVID-19
CPT/HCPCS: G0378; 36415; 80048; 80053; 82962; 85025; 97110; 97162; 97166; 97530; 99283; C9803; U0003; U0005